=== PATIENT | female | born 1980 | race Two or more races ===

== ENCOUNTER 2017-04-21 06:35 | Emergency (ER) | payer MEDICAID ==
[~2017-04-21] VITALS: Ht 149.9 cm; Wt 70.3 kg
[2017-04-21 07:18] LABS: Basophils # (auto) 0.1 uL; Basophils % (auto) 1.1 % (0.0-2.0); CONDITION Y; DEFINITIVE SEE PRINTOUT; Eosinophils # (auto) 0.2 uL; Eosinophils % (auto) 1.9 % (0.0-7.0); Hematocrit 34.6 % (36.0-46.0); Hemoglobin 11.7 g/dL (12.2-16.2); Lymphocytes # (auto) 2.4 uL; Lymphocytes % (auto) 26.4 % (10.0-50.0); Mean Corpuscular Hemoglobin 26.9 pg (28.0-32.0); Mean Corpuscular Hgb Conc. 33.7 g/dL (32.0-36.0); Mean Corpuscular Volume 79.9 fL (80.0-100.0); Mean Platelet Volume 9.3 fL (7.4-10.4); Monocytes # (auto) 0.8 uL; Monocytes % (auto) 8.5 % (0.0-12.0); Neutrophils # (auto) 5.6 uL; Neutrophils % (auto) 62.1 % (37.0-80.0); Platelet Count (auto) 349 10^3/uL (140-450); Red Cell Distribution Width 14.6 % (11.6-16.0); White Blood Cell 8.9 10^3/uL (4.4-10.8)
[2017-04-21] MEDS ORDERED: LORazepam 2MG/ML-1ML VIAL IV ONE (07:30)
[2017-04-21 07:33] LABS: INR 0.91 (0.9-1.15); Partial Thromboplastin Time 26.8 sec (22.64-33.71); Prothrombin Time 9.9 sec (9.37-12.3)
[2017-04-21 07:51] LABS: Albumin 3.3 g/dL (3.4-5.0); BUN/Creatinine Ratio 24.6; Calcium 8.5 mg/dL (8.5-10.1); Potassium 3.8 mmol/L (3.5-5.1)
[2017-04-21 07:55] LABS: Bilirubin, Total 0.2 mg/dL (0.2-1.0); Total Protein 7.7 g/dL (6.4-8.2)
[2017-04-21 09:22] VITALS: BP 109/73
== END 2017-04-21 09:34 | disposition short-term general hospital (02) ==
LOC: ER 06:46
DX: I69.114 Frontal lobe and executive function deficit following nontraumatic intracerebral hemorrhage (principal)
CPT/HCPCS: 36415; 70450; 80053; 85025; 85610; 85730; 96374; 99291; J2060

== ENCOUNTER 2017-07-17 03:23 | Emergency (ER) | payer MEDICAID ==
[~2017-07-17] VITALS: Ht 149.9 cm; Wt 70.3 kg
[2017-07-17 04:36] LABS: Urine Bilirubin Negative (Negative); Urine Blood Negative /uL (Negative); Urine Color Yellow (Yellow); Urine Glucose Normal (Normal); Urine Ketone Negative (Negative); Urine Mucus FEW (None Seen); Urine Nitrite Negative (Negative); Urine RBC <1 /hpf (0 - 4); Urine Squamous Epithelial Cell FEW /hpf (<5)
[2017-07-17] MEDS ORDERED: HYDROcodone-ACET 5/325MG TAB PO ONE (08:30)
[2017-07-17 08:37] VITALS: BP 117/73
== END 2017-07-17 09:23 | disposition home or self-care (01) ==
LOC: ER 03:24
DX: N39.0 Urinary tract infection, site not specified (principal); F41.9 Anxiety disorder, unspecified; Z86.73 Personal history of transient ischemic attack (TIA), and cerebral infarction without residual deficits
CPT/HCPCS: 70450; 81001

== ENCOUNTER 2017-11-08 07:32 | Emergency (ER) | payer MEDICAID ==
[~2017-11-08] VITALS: Ht 149.9 cm; Wt 68.0 kg
[2017-11-08 08:35] VITALS: BP 92/70
[2017-11-08 08:41] LABS: Eosinophils # (auto) 0.2 uL; Hemoglobin 10.6 g/dL (12.2-16.2); Lymphocytes # (auto) 2.5 uL
[2017-11-08 08:42] LABS: Basophils # (auto) 0 uL; Basophils % (auto) 0.4 % (0.0-2.0); Eosinophils % (auto) 1.9 % (0.0-7.0); Lymphocytes % (auto) 28.1 % (10.0-50.0); Mean Corpuscular Hgb Conc. 32.2 g/dL (32.0-36.0); Mean Corpuscular Volume 77.8 fL (80.0-100.0); Monocytes # (auto) 0.7 uL; Monocytes % (auto) 7.8 % (0.0-12.0); Neutrophils # (auto) 5.4 uL; Neutrophils % (auto) 61.8 % (37.0-80.0); Platelet Count (auto) 357 10^3/uL (140-450); Red Blood Cells 4.25 10^6/uL (4.0-5.20); White Blood Cell 8.8 10^3/uL (4.4-10.8)
[2017-11-08] MEDS ORDERED: CLOPIDOGREL BISULFATE 75 MG TAB PO ONE (08:45)
[2017-11-08 08:55] LABS: Albumin 3.4 g/dL (3.4-5.0); BUN/Creatinine Ratio 27.4; Calcium 8.7 mg/dL (8.5-10.1)
[2017-11-08 08:57] LABS: Bilirubin, Total 0.2 mg/dL (0.2-1.0); Total Protein 7.9 g/dL (6.4-8.2)
[2017-11-08] MEDS ORDERED: ONDANSETRON HCL 4 MG/2 ML VIAL IV ONE (09:00)
[2017-11-08] MEDS ORDERED: NALBUPHINE HCL 10 MG/1ml INJECTION IV ONE (09:00)
== END 2017-11-08 09:47 | disposition home or self-care (01) ==
LOC: ER 07:32
DX: R51 Headache (principal); R42 Dizziness and giddiness; R53.1 Weakness; R20.0 Anesthesia of skin; H53.8 Other visual disturbances; I10 Essential (primary) hypertension; Z86.73 Personal history of transient ischemic attack (TIA), and cerebral infarction without residual deficits
CPT/HCPCS: 36415; 70450; 80053; 85025; 93005; 96374; 96375; 99285; J2300; J2405

== ENCOUNTER 2018-04-29 06:44 | Inpatient (IN) | payer MEDICAID ==
[~2018-04-29] VITALS: Ht 149.9 cm; Wt 86.9 kg
[2018-04-29 07:31] LABS: Basophils # (auto) 0 uL; Eosinophils # (auto) 0.1 uL; Eosinophils % (auto) 1.2 % (0.0-7.0); Hemoglobin 10.7 g/dL (12.2-16.2); Monocytes # (auto) 0.5 uL; Neutrophils # (auto) 6.4 uL; Nucleated Red Blood Cells % 0.1 %
[2018-04-29 07:33] LABS: Basophils % (auto) 0.5 % (0.0-2.0); Hematocrit 32.3 % (36.0-46.0); Lymphocytes # (auto) 2.2 uL; Lymphocytes % (auto) 23.6 % (10.0-50.0); Mean Corpuscular Hemoglobin 25.4 pg (28.0-32.0); Mean Corpuscular Hgb Conc. 33.1 g/dL (32.0-36.0); Mean Corpuscular Volume 76.8 fL (80.0-100.0); Monocytes % (auto) 5.6 % (0.0-12.0); Neutrophils % (auto) 69.1 % (37.0-80.0); Platelet Count (auto) 376 10^3/uL (140-450); Red Blood Cells 4.21 10^6/uL (4.0-5.20); Red Cell Distribution Width 16.2 % (11.8-14.3); White Blood Cell 9.3 10^3/uL (4.4-10.8)
[2018-04-29 07:34] LABS: Urine Bacteria FEW /hpf (None Seen); Urine Blood Negative /uL (Negative); Urine Mucus FEW (None Seen); Urine Specific Gravity 1.029 (1.001-1.035); Urine WBC 5 /hpf (0 - 5)
[2018-04-29 07:45] LABS: Albumin 3.3 g/dL (3.4-5.0); BUN/Creatinine Ratio 16.2; Calcium 8.1 mg/dL (8.5-10.1)
[2018-04-29 07:48] LABS: Bilirubin, Total 0.1 mg/dL (0.2-1.0); Total Protein 7.8 g/dL (6.4-8.2)
[2018-04-29 07:59] LABS: INR 0.9 (0.9-1.15); Partial Thromboplastin Time 30.3 sec (23.78-33.04); Prothrombin Time 9.7 sec (9.27-12.13)
[2018-04-29] MEDS ORDERED: ONDANSETRON HCL 4 MG/2 ML VIAL IV ONE (08:15)
[2018-04-29] MEDS ORDERED: MORPHINE SULF INJ 2 MG/ML SYRINGE 1ML IV ONE (08:15)
[2018-04-29] MEDS ORDERED: HYDROcodone-ACET 5/325MG TAB PO ONE (09:15)
[2018-04-29] MEDS ORDERED: MORPHINE SULF INJ 2 MG/ML SYRINGE 1ML IV PRN (10:00)
[2018-04-29] MEDS ORDERED: DOCUSATE SOD 100 MG CAP PO PRN (10:00)
[2018-04-29] MEDS ORDERED: cefTRIAXone 1GM/10ml IVPUSH 10 ML IV ONE (10:00)
[2018-04-29] MEDS ORDERED: ACETAMINOPHEN 325 MG TAB PO PRN (10:00)
[2018-04-29] MEDS ORDERED: NITROGLYCERIN 0.4 MG SL TAB SL PRN (10:00)
[2018-04-29] MEDS ORDERED: ZOLPIDEM TARTRATE 5 MG TAB PO PRN (10:00)
[2018-04-29] MEDS: ENOXAPARIN SOD 40 MG/0.4 ML SYRINGE SC SCH (10:19)
[2018-04-29] MEDS: MULTIPLE VITAMIN TAB PO SCH (10:19)
[2018-04-29] MEDS: FAMOTIDINE 20 MG TAB PO SCH ×2 (10:19→22:08)
[2018-04-29] MEDS: ASPirin-EC 81 mg tab PO SCH (10:19)
[2018-04-29 10:25] LABS: % Iron Saturation 4.2 % (15-50)
[2018-04-29] MEDS: Ensure Enlive Strawberry 8oz Bottle PO SCH ×2 (12:00→17:56)
[2018-04-29] MEDS: HYDROcodone-ACET 5/325MG TAB PO PRN ×2 (13:23→19:55)
[2018-04-29] MEDS: SODIUM CHLOR 0.9% PF (SALINE LOCK) 10ML VIAL/SYR IV SCH ×2 (13:25→22:08)
[2018-04-29] MEDS: GABAPENTIN 300 MG CAP PO SCH ×2 (14:32→22:08)
[2018-04-29] MEDS ORDERED: LORazepam 2MG/ML-1ML VIAL IV PRN (20:00)
[2018-04-29 21:00] VITALS: BP 109/67
[2018-04-29 22:01] VITALS: BP 109/67
[2018-04-29] MEDS: ATORVASTATIN 20 MG TAB PO SCH (22:08)
[2018-04-30] MEDS ORDERED: AMIT50TA3 PO (00:11)
[2018-04-30] MEDS ORDERED: GABA300C10 PO (00:11)
[2018-04-30 05:12] VITALS: BP 107/61
[2018-04-30] MEDS: SODIUM CHLOR 0.9% PF (SALINE LOCK) 10ML VIAL/SYR IV SCH ×3 (05:46→21:13)
[2018-04-30] MEDS: GABAPENTIN 300 MG CAP PO SCH ×3 (05:46→21:13)
[2018-04-30] MEDS: HYDROcodone-ACET 5/325MG TAB PO PRN (05:46)
[2018-04-30 06:25] LABS: Basophils # (auto) 0 uL; Basophils % (auto) 0.4 % (0.0-2.0); Eosinophils # (auto) 0.1 uL; Eosinophils % (auto) 2.1 % (0.0-7.0); Mean Corpuscular Hemoglobin 25.4 pg (28.0-32.0)
[2018-04-30 06:28] LABS: Hematocrit 33.1 % (36.0-46.0); Hemoglobin 10.8 g/dL (12.2-16.2); Lymphocytes # (auto) 1.6 uL; Lymphocytes % (auto) 31.5 % (10.0-50.0); Mean Corpuscular Hgb Conc. 32.6 g/dL (32.0-36.0); Mean Corpuscular Volume 77.8 fL (80.0-100.0); Monocytes # (auto) 0.4 uL; Monocytes % (auto) 7.3 % (0.0-12.0); Neutrophils % (auto) 58.7 % (37.0-80.0); Platelet Count (auto) 355 10^3/uL (140-450); Red Blood Cells 4.25 10^6/uL (4.0-5.20); Red Cell Distribution Width 16.1 % (11.8-14.3); White Blood Cell 5.1 10^3/uL (4.4-10.8)
[2018-04-30 06:49] LABS: BUN/Creatinine Ratio 18.5; Bilirubin, Total 0.3 mg/dL (0.2-1.0); Calcium 8.2 mg/dL (8.5-10.1); Potassium 4.4 mmol/L (3.5-5.1)
[2018-04-30 08:00] VITALS: BP 92/55
[2018-04-30] MEDS: Ensure Enlive Strawberry 8oz Bottle PO SCH ×3 (08:01→17:59)
[2018-04-30] MEDS: cefTRIAXone 1GM/10ml IVPUSH 10 ML IV SCH (09:15)
[2018-04-30] MEDS: ENOXAPARIN SOD 40 MG/0.4 ML SYRINGE SC SCH (09:45)
[2018-04-30] MEDS: FAMOTIDINE 20 MG TAB PO SCH ×2 (09:45→21:13)
[2018-04-30] MEDS: MULTIPLE VITAMIN TAB PO SCH (09:45)
[2018-04-30] MEDS: ASPirin-EC 81 mg tab PO SCH (09:45)
[2018-04-30 12:32] VITALS: BP 121/71
[2018-04-30 16:42] VITALS: BP 105/58
[2018-04-30] MEDS ORDERED: LORazepam 2MG/ML-1ML VIAL IV PRN (18:15)
[2018-04-30] MEDS: HYDROcodone-ACET 10/325MG TAB PO PRN (21:14)
[2018-04-30] MEDS: ATORVASTATIN 20 MG TAB PO SCH (21:14)
[2018-04-30 21:41] VITALS: BP 103/56
[2018-05-01] MEDS: HYDROcodone-ACET 10/325MG TAB PO PRN ×4 (03:25→19:08)
[2018-05-01] MEDS: SODIUM CHLOR 0.9% PF (SALINE LOCK) 10ML VIAL/SYR IV SCH ×3 (05:44→21:18)
[2018-05-01] MEDS: GABAPENTIN 300 MG CAP PO SCH ×3 (05:44→21:18)
[2018-05-01 05:55] VITALS: BP 90/52
[2018-05-01 07:50] LABS: BUN/Creatinine Ratio 23.8; Calcium 8.4 mg/dL (8.5-10.1); Potassium 4.2 mmol/L (3.5-5.1)
[2018-05-01] MEDS: Ensure Enlive Strawberry 8oz Bottle PO SCH ×3 (08:17→18:00)
[2018-05-01 08:30] VITALS: BP 123/61
[2018-05-01] MEDS: ASPirin-EC 81 mg tab PO SCH (09:22)
[2018-05-01] MEDS: FAMOTIDINE 20 MG TAB PO SCH ×2 (09:22→21:18)
[2018-05-01] MEDS: ENOXAPARIN SOD 40 MG/0.4 ML SYRINGE SC SCH (09:22)
[2018-05-01] MEDS: MULTIPLE VITAMIN TAB PO SCH (09:22)
[2018-05-01] MEDS: cefTRIAXone 1GM/10ml IVPUSH 10 ML IV SCH (09:35)
[2018-05-01 12:46] VITALS: BP 93/57
[2018-05-01] MEDS: ONDANSETRON HCL 4 MG/2 ML VIAL IV PRN ×2 (12:51→19:07)
[2018-05-01 16:58] VITALS: BP 101/59
[2018-05-01] MEDS: ATORVASTATIN 20 MG TAB PO SCH (21:18)
[2018-05-01 22:00] VITALS: BP 105/63
[2018-05-02] VITALS (8 sets, daily range): BP systolic 95–127; BP diastolic 56–72
[2018-05-02] MEDS: SODIUM CHLOR 0.9% PF (SALINE LOCK) 10ML VIAL/SYR IV SCH ×3 (05:15→21:35)
[2018-05-02] MEDS: GABAPENTIN 300 MG CAP PO SCH ×3 (05:15→21:34)
[2018-05-02 06:54] LABS: Basophils # (auto) 0 uL; Eosinophils # (auto) 0.1 uL; Hemoglobin 11.1 g/dL (12.2-16.2); Monocytes # (auto) 0.5 uL; Neutrophils # (auto) 3.8 uL; Nucleated Red Blood Cells % 0.1 %; White Blood Cell 6.5 10^3/uL (4.4-10.8)
[2018-05-02 06:57] LABS: Basophils % (auto) 0.2 % (0.0-2.0); Eosinophils % (auto) 1.6 % (0.0-7.0); Hematocrit 34.2 % (36.0-46.0); Lymphocytes # (auto) 2.1 uL; Mean Corpuscular Hemoglobin 24.9 pg (28.0-32.0); Mean Corpuscular Hgb Conc. 32.5 g/dL (32.0-36.0); Mean Corpuscular Volume 76.8 fL (80.0-100.0); Monocytes % (auto) 7.5 % (0.0-12.0); Neutrophils % (auto) 58.7 % (37.0-80.0); Platelet Count (auto) 373 10^3/uL (140-450); Red Blood Cells 4.46 10^6/uL (4.0-5.20); Red Cell Distribution Width 16.5 % (11.8-14.3)
[2018-05-02 07:15] LABS: BUN/Creatinine Ratio 24.6; Calcium 8.7 mg/dL (8.5-10.1); Potassium 4.8 mmol/L (3.5-5.1)
[2018-05-02] MEDS: Ensure Enlive Strawberry 8oz Bottle PO SCH ×3 (09:44→18:34)
[2018-05-02] MEDS: MULTIPLE VITAMIN TAB PO SCH (09:44)
[2018-05-02] MEDS: ASPirin-EC 81 mg tab PO SCH (09:44)
[2018-05-02] MEDS: FAMOTIDINE 20 MG TAB PO SCH ×2 (09:44→21:34)
[2018-05-02] MEDS: cefTRIAXone 1GM/10ml IVPUSH 10 ML IV SCH (09:44)
[2018-05-02] MEDS: HYDROcodone-ACET 10/325MG TAB PO PRN ×2 (09:51→16:14)
[2018-05-02] MEDS: ONDANSETRON HCL 4 MG/2 ML VIAL IV PRN ×2 (10:53→20:26)
[2018-05-02] MEDS: ENOXAPARIN SOD 40 MG/0.4 ML SYRINGE SC SCH (10:57)
[2018-05-02] MEDS ORDERED: FLUMAZENIL 0.1 MG/ML INJ 10ML MDV IV ONE (12:45)
[2018-05-02] MEDS ORDERED: MIDAZOLAM HCL 1MG/1ML-2 ML VIAL IV ONE (12:45)
[2018-05-02] MEDS ORDERED: LIDOCAINE VISCOUS 2% 15ML UD PO ONE (12:45)
[2018-05-02] MEDS ORDERED: fentaNYL CITRATE 100 MCG/2 ML VL IV ONE (12:45)
[2018-05-02] MEDS ORDERED: MIDAZOLAM HCL 1MG/1ML-2 ML VIAL ONE (12:56)
[2018-05-02] MEDS ORDERED: NALOXONE HCL 0.4 MG/ML VIAL ONE (12:57)
[2018-05-02] MEDS: ATORVASTATIN 20 MG TAB PO SCH (21:34)
[2018-05-03 05:30] VITALS: BP 98/49
[2018-05-03] MEDS: GABAPENTIN 300 MG CAP PO SCH ×2 (05:32→14:27)
[2018-05-03] MEDS: SODIUM CHLOR 0.9% PF (SALINE LOCK) 10ML VIAL/SYR IV SCH ×2 (05:32→14:17)
[2018-05-03] MEDS: HYDROcodone-ACET 10/325MG TAB PO PRN ×3 (05:34→14:27)
[2018-05-03 08:00] VITALS: BP 92/55
[2018-05-03] MEDS: FAMOTIDINE 20 MG TAB PO SCH (09:51)
[2018-05-03] MEDS: Ensure Enlive Strawberry 8oz Bottle PO SCH ×2 (09:51→12:41)
[2018-05-03] MEDS: cefTRIAXone 1GM/10ml IVPUSH 10 ML IV SCH (09:51)
[2018-05-03] MEDS: ONDANSETRON HCL 4 MG/2 ML VIAL IV PRN ×2 (09:51→14:28)
[2018-05-03] MEDS: ASPirin-EC 81 mg tab PO SCH (09:51)
[2018-05-03] MEDS: ENOXAPARIN SOD 40 MG/0.4 ML SYRINGE SC SCH (09:52)
[2018-05-03] MEDS: MULTIPLE VITAMIN TAB PO SCH (09:52)
[2018-05-03 12:00] VITALS: BP 100/65
[2018-05-03 15:06] VITALS: BP 92/55
== END 2018-05-03 16:06 | disposition home or self-care (01) | DRG 45 ==
LOC: ER 06:44 → MERGE 06:45 → TELE 06:45 → TELE-WESTW 20:55
PROVIDERS: ADMIT Internal Medicine; ATTEND Internal Medicine
PROC: B24BZZ4 Ultrasonography of Heart with Aorta, Transesophageal (ICD-10-PCS; principal; 2018-05-02)
DX: I63.9 Cerebral infarction, unspecified (principal); E44.1 Mild protein-calorie malnutrition; N39.0 Urinary tract infection, site not specified; E83.51 Hypocalcemia; D63.8 Anemia in other chronic diseases classified elsewhere; R94.5 Abnormal results of liver function studies; Z79.82 Long term (current) use of aspirin; Z79.899 Other long term (current) drug therapy; F41.9 Anxiety disorder, unspecified; E78.5 Hyperlipidemia, unspecified; Z82.49 Family history of ischemic heart disease and other diseases of the circulatory system; Z83.3 Family history of diabetes mellitus; Z86.73 Personal history of transient ischemic attack (TIA), and cerebral infarction without residual deficits; Z91.041 Radiographic dye allergy status; Z91.013 Allergy to seafood; G43.909 Migraine, unspecified, not intractable, without status migrainosus; M46.82 Other specified inflammatory spondylopathies, cervical region; Z68.38 Body mass index [BMI] 38.0-38.9, adult
CPT/HCPCS: 36415; 70450; 70551; 80048; 80053; 80061; 81001; 81025; 83540; 83550; 85025; 85379; 85610; 85730; 87086; 92610; 93306; 93312; 93886; 96374; 96375; 96376; 99152; J0696; J2250; J2405

== ENCOUNTER 2019-09-01 19:48 | Inpatient (IN) | payer SELFPAY ==
[~2019-09-01] VITALS: Ht 149.9 cm; Wt 67.7 kg
[~2019-09-01 19:48] MED LIST: AMIT50TA3 PO; GABA300C10 PO
[2019-09-01] MEDS ORDERED: ONDANSETRON ODT 4 MG TAB PO ONE (20:30)
[2019-09-01] MEDS ORDERED: SODIUM CHLORIDE 0.9% 1,000 ML IVB ONE (20:33)
[2019-09-01] MEDS ORDERED: MORPHINE SULFATE 4 MG/ML SYR/VIAL IV ONE (20:45)
[2019-09-01] MEDS ORDERED: FAMOTIDINE (10MG/ML) 2ML VL IV ONE (20:45)
[2019-09-01 20:56] LABS: Basophils # (auto) 0 uL; Basophils % (auto) 0.2 % (0.0-2.0); Eosinophils # (auto) 0 uL; Eosinophils % (auto) 0.4 % (0.0-7.0); Hematocrit 36.3 % (36.0-46.0); Lymphocytes # (auto) 1.6 uL; Lymphocytes % (auto) 20.3 % (10.0-50.0); Mean Corpuscular Hemoglobin 28.9 pg (28.0-32.0); Mean Corpuscular Volume 87.5 fL (80.0-100.0); Monocytes # (auto) 0.6 uL; Monocytes % (auto) 8.3 % (0.0-12.0); Neutrophils # (auto) 5.5 uL; Neutrophils % (auto) 70.8 % (37.0-80.0); Nucleated Red Blood Cells % 0.1 %; Platelet Count (auto) 290 10^3/uL (140-450); Red Blood Cells 4.15 10^6/uL (4.0-5.20); Red Cell Distribution Width 13.4 % (11.8-14.3); White Blood Cell 7.8 10^3/uL (4.4-10.8)
[2019-09-01 21:09] LABS: Albumin 3.2 g/dL (3.4-5.0); BUN/Creatinine Ratio 25.5; Calcium 8.4 mg/dL (8.5-10.1); Potassium 3.6 mmol/L (3.5-5.1)
[2019-09-01 21:17] LABS: Bilirubin, Total 3.2 mg/dL (0.2-1.0); Total Protein 7.3 g/dL (6.4-8.2)
[2019-09-01] MEDS ORDERED: metroNIDAZOLE 500MG/100ML 100 ML IV ONE (23:00)
[2019-09-01] MEDS ORDERED: SODIUM CHLORIDE 0.9% 1,000 ML IV ONE (23:00)
[2019-09-01] MEDS ORDERED: cefTRIAXone 1GM/50ML D5W 50 ML IV ONE (23:00)
[2019-09-01] MEDS ORDERED: MORPHINE SULF INJ 2 MG/ML SYRINGE 1ML IV PRN (23:00)
[2019-09-01] MEDS ORDERED: NITROGLYCERIN 0.4 MG SL TAB SL PRN (23:00)
[2019-09-02] MEDS: MORPHINE SULFATE 4 MG/ML SYR/VIAL IV PRN ×4 (04:19→20:52)
[2019-09-02] MEDS: ONDANSETRON HCL 4 MG/2 ML VIAL IV PRN ×4 (04:20→20:52)
[2019-09-02] MEDS ORDERED: metroNIDAZOLE 500MG/100ML 100 ML IV SCH (06:00)
[2019-09-02 07:56] LABS: Basophils # (auto) 0 uL; Basophils % (auto) 0.1 % (0.0-2.0); Eosinophils # (auto) 0 uL; Eosinophils % (auto) 0.6 % (0.0-7.0); Hematocrit 33.5 % (36.0-46.0); Hemoglobin 11.3 g/dL (12.2-16.2); Lymphocytes # (auto) 1.2 uL; Lymphocytes % (auto) 18.1 % (10.0-50.0); Mean Corpuscular Hemoglobin 29.4 pg (28.0-32.0); Mean Corpuscular Hgb Conc. 33.6 g/dL (32.0-36.0); Mean Corpuscular Volume 87.5 fL (80.0-100.0); Monocytes # (auto) 0.5 uL; Monocytes % (auto) 7.4 % (0.0-12.0); Neutrophils # (auto) 5.1 uL; Neutrophils % (auto) 73.8 % (37.0-80.0); Platelet Count (auto) 248 10^3/uL (140-450); Red Blood Cells 3.83 10^6/uL (4.0-5.20); Red Cell Distribution Width 13.5 % (11.8-14.3); White Blood Cell 6.9 10^3/uL (4.4-10.8)
[2019-09-02 08:09] LABS: Albumin 2.8 g/dL (3.4-5.0); BUN/Creatinine Ratio 25.5; Calcium 7.9 mg/dL (8.5-10.1); Potassium 3.9 mmol/L (3.5-5.1)
[2019-09-02 08:11] LABS: Bilirubin, Total 3.1 mg/dL (0.2-1.0); Total Protein 6.4 g/dL (6.4-8.2)
--- NOTE | 2019-09-02 08:40 | NUR ---
Telemetry admit from ER DOMI MCCALL admitted to Telemetry unit after SBAR received. Patient oriented to GERRY TRIVEDI, primary RN, unit, room, bed, and unit policies regarding patient care and visiting hours. Patient now on continuous telemetry monitoring. Patient weighed by bedscale and encouraged to call if they need something. All questions and concerns addressed, patient verbalized understanding.
--- NOTE | 2019-09-02 08:45 | NUR ---
PT TRANSPORTED BY RADIOLOGY FOR MRI.
[2019-09-02] MEDS ORDERED: cefTRIAXone 1GM/50ML D5W 50 ML IV SCH (09:00)
--- NOTE | 2019-09-02 09:15 | NUR ---
PT RETURNED FROM MRI. REFUSED TEST. CLAIMED SHE WAS TOO CLAUSTROPHOBIC. DR RODRIGUEZ IS AWARE. ORDERED HIDA SCAN.
[2019-09-02 09:20] VITALS: BP 102/57
[2019-09-02] MEDS: PIPERACILLIN-TAZOB 3.375GM 100 ML IV SCH ×5 (10:00→23:38)
[2019-09-02] MEDS: PANTOPRAZOLE 40 MG/10 ML VIAL INJ IV SCH (10:02)
[2019-09-02 10:19] LABS: INR 0.97 (0.9-1.15); Partial Thromboplastin Time 27.8 sec (23.64-32.05)
[2019-09-02] MEDS: LACTATED RINGER'S 1,000 ML IV SCH ×3 (10:27→23:05)
--- NOTE | 2019-09-02 12:00 | NUR ---
PT RETURNED FROM XRAY AND HIDA SCAN. NO DISTRESS NOTED.
[2019-09-02 13:00] VITALS: BP 100/53
[2019-09-02] MEDS ORDERED: MIDAZOLAM HCL 10 MG/5 ML ORAL SYRUP UNIT DOSE PO ONE (16:30)
[2019-09-02 17:00] VITALS: BP 96/57
--- NOTE | 2019-09-02 17:30 | NUR ---
SPOKE TO DR HA ABOUT PTS REFUSAL DURING MRI MRCP DUE TO CLAUSTROPHOBIA. PLACED ORDER FOR VERSED PO. WAS NOTIFIED BY PHARMACY THAT MED IS NOT AVAILABLE. WILL CONTACT
--- NOTE | 2019-09-02 18:00 | NUR ---
CALLED ABOUT MRI. WAS TOLD THAT PT MAY NOT BE ABLE TO GO FOR PROCEDURE UNTIL TOMORROW MORNING DUE TO BEING AFTER HOURS.
--- NOTE | 2019-09-02 19:30 | NUR ---
SPOKE WITH ONCALL HOSPITALIST SETH. ORDERED TO CANCEL VERSED PO ORDER. ONE TIME ORDER OF VERSED 1MG IV WAS ORDERED.
--- NOTE | 2019-09-02 19:55 | NUR ---
assumed care, pt. resting with eyes closed, no c/o pain and nausea, no sob.
--- NOTE | 2019-09-02 20:30 | NUR ---
PHARMACY CALLED RE: [facility]. PER PHARMACY PROTOCOL VERSED MEDICATION NOT ALLOWED TO BE GIVEN ON THE FLOOR, THIS ONLY USE FOR SEDATION, TO ENDORSED TO RN IN AM, PHARMACY RECOMMENDED ATIVAN IV .
[2019-09-02 21:00] VITALS: BP 105/54
[2019-09-02] MEDS ORDERED: MIDAZOLAM HCL 1MG/1ML-2 ML VIAL IV ONE (23:00)
[2019-09-03] MEDS: ONDANSETRON HCL 4 MG/2 ML VIAL IV PRN ×3 (00:57→08:31)
[2019-09-03] MEDS: MORPHINE SULFATE 4 MG/ML SYR/VIAL IV PRN ×3 (00:57→08:31)
[2019-09-03 04:30] VITALS: BP 100/63
[2019-09-03] MEDS: PIPERACILLIN-TAZOB 3.375GM 100 ML IV SCH ×3 (05:31→20:05)
[2019-09-03] MEDS: LACTATED RINGER'S 1,000 ML IV SCH ×3 (05:45→22:32)
[2019-09-03 06:16] LABS: Basophils # (auto) 0 uL; Basophils % (auto) 0.2 % (0.0-2.0); Eosinophils # (auto) 0.1 uL; Eosinophils % (auto) 0.7 % (0.0-7.0); Hematocrit 34.7 % (36.0-46.0); Hemoglobin 11.8 g/dL (12.2-16.2); Lymphocytes # (auto) 1.2 uL; Lymphocytes % (auto) 16.3 % (10.0-50.0); Mean Corpuscular Hemoglobin 29.8 pg (28.0-32.0); Mean Corpuscular Hgb Conc. 34.1 g/dL (32.0-36.0); Mean Corpuscular Volume 87.3 fL (80.0-100.0); Monocytes # (auto) 0.5 uL; Monocytes % (auto) 6.8 % (0.0-12.0); Neutrophils # (auto) 5.5 uL; Platelet Count (auto) 257 10^3/uL (140-450); Red Blood Cells 3.98 10^6/uL (4.0-5.20); Red Cell Distribution Width 13.6 % (11.8-14.3); White Blood Cell 7.3 10^3/uL (4.4-10.8)
[2019-09-03 06:37] LABS: Albumin 2.7 g/dL (3.4-5.0); Calcium 8.2 mg/dL (8.5-10.1); Potassium 3.7 mmol/L (3.5-5.1)
[2019-09-03 06:48] LABS: BUN/Creatinine Ratio 14.8; Bilirubin, Total 3.1 mg/dL (0.2-1.0); Total Protein 6.3 g/dL (6.4-8.2)
--- NOTE | 2019-09-03 07:55 | NUR ---
OPENING SHIFT NOTE ASSUMED CARE OF PT. PT IS AWAKE AND ALERT X4. NO SOB OR SIGNS OF DISTRESS NOTED. PT REPORTING INCREASED PAIN AT THIS TIME. WILL CONTACT DR FOR INSTRUCTIONS. INSTRUCTED ON POC AND TO CALL FOR HELP PRN. BED IN LOWEST POSITION WITH SIDE RAILS UP X2. WILL CONTINUE TO MONITOR.
--- NOTE | 2019-09-03 08:30 | NUR ---
SPOKE WITH DR HA ABOUT PT PAIN AND PT WILLING TO TRY MRI MRCP. ORDERED DILAUDID 1MG IV Q3. WILL PLACE AND CARRY OUT.
[2019-09-03 09:00] VITALS: BP 104/58
[2019-09-03 09:59] LABS: Urine Bacteria NONE SEEN /hpf (None Seen); Urine Blood TRACE /uL (Negative); Urine Specific Gravity 1.017 (1.001-1.035); Urine WBC 2 /hpf (0 - 5)
[2019-09-03] MEDS: PANTOPRAZOLE 40 MG/10 ML VIAL INJ IV SCH (11:32)
[2019-09-03] MEDS: HYDROmorphone HCL 2 MG/ML VL IV PRN ×3 (11:34→21:23)
[2019-09-03 13:00] VITALS: BP 95/48
--- NOTE | 2019-09-03 15:45 | NUR ---
TOOK PT TO PRE-OP FOR PROCEDURE. VITAL SIGNS WNL. NO DISTRESS NOTED.
[2019-09-03 16:48] VITALS: BP 93/56
[2019-09-03] MEDS ORDERED: LABETALOL HCL 5 MG/ML 4ML SYRINGE IV PRN (18:00)
[2019-09-03] MEDS ORDERED: HYDROmorphone HCL 2 MG/ML VL IV PRN (18:00)
[2019-09-03] MEDS ORDERED: ONDANSETRON HCL 4 MG/2 ML VIAL IV PRN (18:00)
[2019-09-03] MEDS ORDERED: MORPHINE SULFATE 4 MG/ML SYR/VIAL IV PRN (18:00)
[2019-09-03] MEDS ORDERED: ePHEDrine SULFATE 50 MG/ML AMP IV PRN (18:00)
[2019-09-03] MEDS ORDERED: KETOROLAC TROMETH 30 MG/ML 1ML VIAL IV ONE (18:00)
[2019-09-03] MEDS ORDERED: MIDAZOLAM HCL 1MG/1ML-2 ML VIAL IV PRN (18:00)
--- NOTE | 2019-09-03 18:50 | NUR ---
CALLED OR [facility]. WAS TOLD PT HAD BEEN OUT OF SURGERY FOR 30 MINUTES AND WAS RECOVERING. RECOVERY NURSE STATED SHE WOULD CALL TO GIVE COMPLETE REPORT AT 1930. WILL ENDORSE TO RECORD TESTER RN.
--- NOTE | 2019-09-03 19:00 | NUR ---
PT. STILL IN [facility].
--- NOTE | 2019-09-03 19:45 | NUR ---
RECIVED PT. FROM ANICETO JOHANSEN, FROM [facility], AWAKE,ALERT AND ORIENTED, PT. S/P LAP. CHOLECYSTECTOMY, WITH THREE SMALL DRESSINGS ON ABDOMINAL AREA DRY AND INTACT, RELATIVES AT BEDSIDE, NO SOB.
[2019-09-04] VITALS (7 sets, daily range): BP systolic 91–100; BP diastolic 40–61
[2019-09-04] MEDS: PIPERACILLIN-TAZOB 3.375GM 100 ML IV SCH ×4 (01:00→19:40)
[2019-09-04] MEDS: LACTATED RINGER'S 1,000 ML IV SCH ×4 (01:45→19:40)
[2019-09-04] MEDS: HYDROmorphone HCL 2 MG/ML VL IV PRN ×4 (03:52→22:09)
[2019-09-04 05:36] LABS: Basophils # (auto) 0 uL; Eosinophils # (auto) 0 uL; Hematocrit 25.4 % (36.0-46.0); Hemoglobin 8.7 g/dL (12.2-16.2); Lymphocytes # (auto) 0.5 uL; Lymphocytes % (auto) 6.4 % (10.0-50.0); Mean Corpuscular Hgb Conc. 34.3 g/dL (32.0-36.0); Mean Corpuscular Volume 87.4 fL (80.0-100.0); Monocytes # (auto) 0.3 uL; Monocytes % (auto) 3.1 % (0.0-12.0); Neutrophils # (auto) 7.3 uL; Neutrophils % (auto) 90.5 % (37.0-80.0); Platelet Count (auto) 258 10^3/uL (140-450); Red Blood Cells 2.91 10^6/uL (4.0-5.20); Red Cell Distribution Width 13.8 % (11.8-14.3); White Blood Cell 8.1 10^3/uL (4.4-10.8)
[2019-09-04 05:50] LABS: Albumin 2.3 g/dL (3.4-5.0); Potassium 3.9 mmol/L (3.5-5.1)
[2019-09-04 05:53] LABS: BUN/Creatinine Ratio 21.2; Bilirubin, Total 1.6 mg/dL (0.2-1.0); Total Protein 5.6 g/dL (6.4-8.2)
--- NOTE | 2019-09-04 08:16 | NUR ---
OPENING SHIFT NOTE RESUMED CARE OF PT. PT IS AWAKE AND ALERT. NO SOB OR SIGNS OF DISTRESS NOTED. LAP CHOLECYSTECTOMY DRESSINGS DRY AND INTACT. INSTRUCTED ON POC AND TO CALL FOR HELP PRN. BED IN LOWEST POSITION WITH SIDE RAILS UP X2. CALL LIGHT WITHIN REACH. WILL CONTINUE TO MONITOR.
[2019-09-04] MEDS ORDERED: LEVOFLOXACIN 500MG 100 ML IV ONE (08:53)
--- NOTE | 2019-09-04 10:17 | NUR ---
PAGED DR BACA ABOUT ARUN DRAINAGE AMOUNT. SAID HE WOULD BE UP TO SEE PATIENT.
[2019-09-04] MEDS: PANTOPRAZOLE 40 MG/10 ML VIAL INJ IV SCH (10:49)
--- NOTE | 2019-09-04 11:00 | NUR ---
CALLED [facility] PER DR HA INSTRUCTIONS. AWAITING CALL BACK.
[2019-09-04 11:30] LABS: Basophils # (auto) 0 uL; Eosinophils # (auto) 0 uL; Hemoglobin 8.1 g/dL (12.2-16.2); Neutrophils # (auto) 7.3 uL
--- NOTE | 2019-09-04 11:30 | NUR ---
DR BACA AT BEDSIDE. ASSESSED PATIENT. ORDERED CLEAR LIQUID DIET AND WILL MONITOR LABS.
[2019-09-04 11:36] LABS: Hematocrit 23.6 % (36.0-46.0); Lymphocytes # (auto) 1.1 uL; Lymphocytes % (auto) 12.4 % (10.0-50.0); Mean Corpuscular Hemoglobin 29.8 pg (28.0-32.0); Mean Corpuscular Hgb Conc. 34.2 g/dL (32.0-36.0); Mean Corpuscular Volume 87.2 fL (80.0-100.0); Monocytes # (auto) 0.8 uL; Monocytes % (auto) 8.8 % (0.0-12.0); Neutrophils % (auto) 78.8 % (37.0-80.0); Platelet Count (auto) 268 10^3/uL (140-450); Red Blood Cells 2.71 10^6/uL (4.0-5.20); Red Cell Distribution Width 14.1 % (11.8-14.3); White Blood Cell 9.2 10^3/uL (4.4-10.8)
--- NOTE | 2019-09-04 13:58 | NUR ---
NUTRITION ASSESSMENT NOTES Please refer to link notes of nutrition screen form filed under the intervention section of the plan of care for further details. Est. Needs: 1300 kcal to 1650 kcal (20-25 kcal/kgBW), 52 gms to 65 gms pro (0.8-1.0 gms/kgBW). Will continue to monitor pertinent labs and reassess nutrient need prn Thank you. Addendum: 09/04/19 at [address] Amended: Links added.
[2019-09-04 14:44] LABS: Hemoglobin 8.8 g/dL (12.2-16.2)
--- NOTE | 2019-09-04 17:15 | NUR ---
RECEIVED CALL FROM DR BACA. REPORTED ARUN DRAIN AMOUNT. DR BACA ORDERED PT TO BE TRANSFERRED TO [facility]. CALLED [facility]. PT IS TO GO TO ROOM 261 WITH ANICETO WADE.
--- NOTE | 2019-09-04 17:15 | NUR ---
ARUN DRAINAGE SINCE [address] BACA IS AWARE.
--- NOTE | 2019-09-04 18:15 | NUR ---
PT TRANSFERRED TO [facility] ROOM 261. REPORT GIVEN TO ANICETO WADE. NO DISTRESS NOTED AT THIS TIME.
[2019-09-04 18:22] LABS: Hematocrit 21.5 % (36.0-46.0); Hemoglobin 7.3 g/dL (12.2-16.2)
--- NOTE | 2019-09-04 18:30 | NUR ---
RECEIVED PATIENT FROM THE 293B BY THE BED, PLACED ON O2 AT 1L DUE TO O2 SAT GOING TO 88%, A/O TIMES 4, SALINE LOCK 20G TO THE LAC FLUSHED AND PATENT, STATES SHE CAN USE THE BR, SCD'S PLACED TO TONY LEGS, 3 SMALL INCISION TO THE ABD WITH DRESSING AND COVERED WITH ABDOMINAL BINDER, ARUN TO THE ABD WITH BULB SUCTION, STATES SHE WAS JUST MEDICATED FOR PAIN, VS [id number]'[id number]/47 99%, WILL CONTINUE TO MONITOR AND GIVE REPORT TO THE NEXT SHIFT
[2019-09-04 21:44] LABS: Hematocrit 21.6 % (36.0-46.0)
[2019-09-04 21:46] LABS: Hemoglobin 7.3 g/dL (12.2-16.2)
[2019-09-05] VITALS (7 sets, daily range): BP systolic 99–109; BP diastolic 45–66
[2019-09-05 01:59] LABS: Hematocrit 20.1 % (36.0-46.0)
[2019-09-05 02:04] LABS: Hemoglobin 6.8 g/dL (12.2-16.2)
--- NOTE | 2019-09-05 02:13 | NUR ---
[facility] hospitalist regarding critical HGB, will continue to closely monitor patient.
[2019-09-05] MEDS: LACTATED RINGER'S 1,000 ML IV SCH ×3 (04:25→23:53)
[2019-09-05] MEDS: PIPERACILLIN-TAZOB 3.375GM 100 ML IV SCH ×5 (05:05→23:49)
[2019-09-05 06:40] LABS: Basophils # (auto) 0 uL; Basophils % (auto) 0.3 % (0.0-2.0); Eosinophils # (auto) 0.1 uL; Eosinophils % (auto) 0.9 % (0.0-7.0); Hematocrit 25.6 % (36.0-46.0); Hemoglobin 8.7 g/dL (12.2-16.2); Lymphocytes # (auto) 1.7 uL; Lymphocytes % (auto) 28.1 % (10.0-50.0); Mean Corpuscular Hemoglobin 30.3 pg (28.0-32.0); Mean Corpuscular Hgb Conc. 34.1 g/dL (32.0-36.0); Monocytes # (auto) 0.6 uL; Monocytes % (auto) 9.1 % (0.0-12.0); Neutrophils # (auto) 3.7 uL; Neutrophils % (auto) 61.6 % (37.0-80.0); Platelet Count (auto) 222 10^3/uL (140-450); Red Blood Cells 2.88 10^6/uL (4.0-5.20)
[2019-09-05 07:03] LABS: Albumin 2.2 g/dL (3.4-5.0); Magnesium 1.8 mg/dL (1.6-2.6); Potassium 3.6 mmol/L (3.5-5.1)
[2019-09-05 07:08] LABS: BUN/Creatinine Ratio 20.5; Bilirubin, Total 1.1 mg/dL (0.2-1.0); Total Protein 5.5 g/dL (6.4-8.2)
--- NOTE | 2019-09-05 07:30 | NUR ---
RECEIVED PATIENT SEMI FOWLERS IN BED, O2 BY R/A, A/O TIMES 4, LR INFUSING AT 150ML/HR BY THE IV PUMP INTO THE LAC, STATES SHE IS STILL GETTING UP TO USE THE BR, DRESSING TO THE ABD COVERED WITH ABD BINDER AND ARUN TO THE ABD WITH BURGUNDY COLORED DRAINAGE
[2019-09-05] MEDS: HYDROmorphone HCL 2 MG/ML VL IV PRN ×4 (07:49→21:57)
--- NOTE | 2019-09-05 07:50 | NUR ---
DILAUDID GIVEN FOR PAIN TO THE ABD 10/10, SLOWLY DUE TO PATIENT B/P DECREASE WHEN IT IS GIVEN, WHICH WAS EXPLAINED TO THE PATIENT
--- NOTE | 2019-09-05 08:30 | NUR ---
OFFERED BREAKFAST BUT ONLY ATE THE JELL-O
--- NOTE | 2019-09-05 09:00 | NUR ---
IN TO SEE THE PATIENT
[2019-09-05] MEDS: PANTOPRAZOLE 40 MG/10 ML VIAL INJ IV SCH (09:25)
--- NOTE | 2019-09-05 09:25 | NUR ---
EXPLAIN MEDICATIONS TO THE PATIENT REGARDING THE DOSAGE,USAGE AND THE SIDE EFFECTS, VERBALIZED THAT SHE UNDERSTOOD AND MEDS GIVEN ORDERED
--- NOTE | 2019-09-05 10:00 | NUR ---
DR BACA HERE TO SEE THE PATIENT AND STATED TO ORDER A CT OF THE ABD FOR THE PATIENT
[2019-09-05] MEDS ORDERED: IOHEXOL 300 MG/ML 100ML BOTTLE IJ ONE (10:25)
[2019-09-05 10:26] LABS: Hematocrit 25.3 % (36.0-46.0); Hemoglobin 8.6 g/dL (12.2-16.2)
--- NOTE | 2019-09-05 10:30 | NUR ---
PATIENT URINATED AND THERE WAS SOME CLOTS IN THE TOILET, DR BACA MADE AWARE
--- NOTE | 2019-09-05 11:00 | NUR ---
PATIENT STATES THE BLOOD WHEN SHE URINATED MAY BE FROM HER BEING ON HER PERIOD SHE DOESN'T KNOW IF IT HAS STOPPED YET
--- NOTE | 2019-09-05 11:05 | NUR ---
DR HA IN TO SEE THE PATIENT
--- NOTE | 2019-09-05 11:20 | NUR ---
DILAUDID GIVEN FOR PAIN TO THE ABD 10/10
--- NOTE | 2019-09-05 11:45 | NUR ---
PATIENT TO THE CT BY THE BED FOR CT OF THE ABD
--- NOTE | 2019-09-05 12:10 | NUR ---
BACK FROM CT AND TOLERATED THE PROCEDURE
--- NOTE | 2019-09-05 13:20 | NUR ---
NOTIFIED BY DR BACA THAT THE CT WAS NEGATIVE AND TO GIVE THE PATIENT REGULAR FOOD,
--- NOTE | 2019-09-05 13:48 | NUR ---
SITTING UP IN BED EATING AND TALKING THE PHONE
[2019-09-05 14:02] LABS: Hematocrit 26.4 % (36.0-46.0); Hemoglobin 9.1 g/dL (12.2-16.2)
--- NOTE | 2019-09-05 14:30 | NUR ---
NO CHANGE IN CONDITION
--- NOTE | 2019-09-05 15:25 | NUR ---
SITTING UP IN THE BED WITH EYES CLOSED
--- NOTE | 2019-09-05 16:00 | NUR ---
UP TO THE BR AND URINATED AND SPECIMEN SENT TO THE LAB
--- NOTE | 2019-09-05 16:20 | NUR ---
MEDICATED FOR PAIN TO THE ABD WITH DILAUDID TO THE ABD Addendum: 09/05/19 at 1621 by Renée De Los Santos RN PAIN LEVEL 07/10
[2019-09-05 17:31] LABS: Urine Bacteria NONE SEEN /hpf (None Seen); Urine Blood 3+ /uL (Negative); Urine Mucus FEW (None Seen); Urine Specific Gravity 1.014 (1.001-1.035); Urine WBC 3 /hpf (0 - 5)
--- NOTE | 2019-09-05 17:32 | NUR ---
LYING IN BED WITH HER EYES CLOSED
--- NOTE | 2019-09-05 17:47 | NUR ---
EXPRESS TO THE PATIENT THAT SHE NEEDS TO DRINK MORE FLUIDS
--- NOTE | 2019-09-05 18:12 | NUR ---
SITTING UP IN THE BED, TALKING ON THE PHONE, JUST CAME TO VISIT, H&H JUST DRAWN, ANTIBIOTICS INFUSING INTO THE LAC BY THE IV PUMP, GETTING UP TO BR, ARUN TO THE ABD , DRESSING TO THE ABD DRY AND INTACT COVERED BY ABDOMINAL BINDER, NOT COMPLAINING OF PAIN AT THIS TIME, WILL CONTINUE TO MONITOR AND GIVE REPORT TO THE NEXT SHIFT
[2019-09-05 18:48] LABS: Hemoglobin 8.4 g/dL (12.2-16.2)
[2019-09-05 18:50] LABS: Hematocrit 24.6 % (36.0-46.0)
--- NOTE | 2019-09-05 19:15 | NUR ---
OPENING ASSUMED CARE OF PT ALERT AND ORIENTED X4, RESTING IN BED. SR ON LICENSED NURSE PRACTITIONER. RESPIRATIONS EVEN AND UNLABORED. ABD INCISIONS CDI. ARUN SITE INTACT AND DRY, DRAINING BLOODY FLUID INTO BULB. NO PAIN AT THIS TIME. VSS. PT TURNING SELF IN BED. BED IN LOWEST LOCKED POSITION. EDUCATED RESTAURANT KITCHEN AND SERVICE MANAGER LIGHT AND TO CALL FOR ASSISTANCE BEFORE GETTING OUT OF BED, VERBALIZED UNDERSTANDING. SKIN INTACT. IN FULL VIEW OF NURSES STATION, WILL CONTINUE TO MONITOR.
--- NOTE | 2019-09-05 23:40 | NUR ---
IVS PATENT SALINE FLUSHED, ASYMPTOMATIC
[2019-09-06] VITALS (7 sets, daily range): BP systolic 91–115; BP diastolic 45–71
[2019-09-06] MEDS: HYDROmorphone HCL 2 MG/ML VL IV PRN ×6 (02:54→23:54)
--- NOTE | 2019-09-06 04:48 | NUR ---
MD AT BEDSIDE DR BACA UPDATING PT ON STATUS.
[2019-09-06 05:50] LABS: Albumin 2.3 g/dL (3.4-5.0); BUN/Creatinine Ratio 14.3; Basophils # (auto) 0 uL; Basophils % (auto) 0.2 % (0.0-2.0); Calcium 7.7 mg/dL (8.5-10.1); Eosinophils # (auto) 0.1 uL; Eosinophils % (auto) 1.6 % (0.0-7.0); Hematocrit 24.7 % (36.0-46.0); Hemoglobin 8.5 g/dL (12.2-16.2); Lymphocytes # (auto) 1.4 uL; Lymphocytes % (auto) 23.8 % (10.0-50.0); Mean Corpuscular Hemoglobin 30.3 pg (28.0-32.0); Mean Corpuscular Hgb Conc. 34.3 g/dL (32.0-36.0); Mean Corpuscular Volume 88.5 fL (80.0-100.0); Monocytes # (auto) 0.6 uL; Monocytes % (auto) 9.8 % (0.0-12.0); Neutrophils # (auto) 3.7 uL; Neutrophils % (auto) 64.6 % (37.0-80.0); Platelet Count (auto) 237 10^3/uL (140-450); Potassium 3.4 mmol/L (3.5-5.1); Red Blood Cells 2.79 10^6/uL (4.0-5.20); Red Cell Distribution Width 13.9 % (11.8-14.3); White Blood Cell 5.8 10^3/uL (4.4-10.8)
[2019-09-06 05:52] LABS: Bilirubin, Total 0.8 mg/dL (0.2-1.0); Total Protein 5.4 g/dL (6.4-8.2)
[2019-09-06] MEDS: PIPERACILLIN-TAZOB 3.375GM 100 ML IV SCH ×4 (05:55→23:53)
--- NOTE | 2019-09-06 06:21 | NUR ---
ARUN WITH 155MLS OUT THROUGHOUT NIGHT
[2019-09-06] MEDS: LACTATED RINGER'S 1,000 ML IV SCH ×3 (07:05→23:53)
--- NOTE | 2019-09-06 08:00 | NUR ---
Opening Shift Note Assumed care of patient, awake and alert. Patient A&Ox4. Patient on the monitor. Patient on room air, saturation 98%. IV left AC 20G running LR at 150ml/hr, patent, clean, dry, and intact. Patient has ABD binder off and wants to leave it off for now. ABD incisions clean, dry, and intact. ARUN drain to suction. No S/S of distress/SOB or pain. Instructed on POC and to call for assist. Bed locked and in the lowest position, side rails up x2, call light with in reach. Will continue to monitor.
--- NOTE | 2019-09-06 08:30 | NUR ---
Patient sitting up on side of bed eating breakfast independently. Will continue to monitor.
--- NOTE | 2019-09-06 10:00 | NUR ---
Medication dosages, usages, and side effects explained to patient. Patient verbalized understanding. Will continue to monitor.
[2019-09-06] MEDS: PANTOPRAZOLE 40 MG/10 ML VIAL INJ IV SCH (10:53)
--- NOTE | 2019-09-06 12:25 | NUR ---
Patient sitting up on side of bed eating lunch independently. Will continue to monitor.
--- NOTE | 2019-09-06 13:47 | NUR ---
REPORT CALLED TO [facility] IN PREP FOR TRANSFER TO [facility]
--- NOTE | 2019-09-06 14:00 | NUR ---
Pt received, as transfer from [facility]. Pt alert and oriented. V.S.S., Resp even, unlabored. No c/o pain or discomfort at this time.
--- NOTE | 2019-09-06 14:08 | NUR ---
Nutrition Follow-up Notes Wt.: 68.3 kg Pt's asleep, no immediate family member at bedside during rounds this morning. Pt's no signs of distress noted earlier, currently on Soft diet with adequate PO intake aeb 100% consumed meal on today's breakfast. Est. Needs: 1300 kcal to 1650 kcal (20-25 kcal/kgBW), 52 gms to 65 gms pro (0.8-1.0 gms/kgBW). Will continue to monitor pertinent labs and reassess nutrient need prn Labs: K 3.4 L, Ca 7.7 L, Cr 0.49 L, Tot jean marie 1.6 H, AST 44 H, ALT 100 H, ALP 229 H, Tpro 5.4 L, Alb 2.3 L Skin: Johnnie scale 18, mod risk, pt's abdominal incision dry and intact per farm planner. GI: Pt's no bowel activity since 09/02/19per farm planner. PES: Altered nutrition related lab values r/t current/chronic medical condition aeb hyperchloremia, elev. LFTs, Amylase, Lipase, hypocalcemia and mild hypoalbuminemia Obesity r/t food intake more than body requirement aeb 146% IBW, BMI 29.0 kg/m2 and increased body adiposity Will continue to monitor PO intake, skin status, pertinent labs and weight trend. F/u in 3 to 5 days. Rec.: 1.) Consider Soft Low Fat diet if LFTs remain elev. 2.) Continue close supervision during meals. 32.) If Albumin continues trending down, consider Prostat 1 pkt BID. 3.) Refer pt to RD for further nutrition education and weight monitoring upon discharge. 4.) Continue current plan of care.
[2019-09-06] MEDS ORDERED: LACTULOSE 20Gm/30ML SOLN PO PRN (14:15)
[2019-09-06] MEDS ORDERED: POTASSIUM CHL 20 Meq TABLET PO ONE (14:15)
--- NOTE | 2019-09-06 19:30 | NUR ---
Opening Shift Note Assumed care of patient, awake and alert. No S/S of distress/SOB or pain. Bed in lowest locked position, side rails up x2, call light within reach. 100 ml of sanguinous drainage noted from ARUN drain. Abdominal dressings clean, dry, and intact. Instructed on POC and to call for assist PRN, will continue to monitor for changes Q1hr and PRN.
[2019-09-06] MEDS: DOCUSATE SOD 100 MG CAP PO SCH (20:27)
[2019-09-07] MEDS: HYDROmorphone HCL 2 MG/ML VL IV PRN ×6 (03:23→21:49)
[2019-09-07 05:21] VITALS: BP 111/66
[2019-09-07] MEDS: PIPERACILLIN-TAZOB 3.375GM 100 ML IV SCH ×3 (06:39→18:21)
--- NOTE | 2019-09-07 06:50 | NUR ---
Closing Note Patient lying in bed, awake and alert. No s/s of distress. Will endorse care to dayshift RN.
[2019-09-07 07:37] LABS: Hematocrit 25.2 % (36.0-46.0); Hemoglobin 8.7 g/dL (12.2-16.2)
--- NOTE | 2019-09-07 08:00 | NUR ---
INTITIAL ASSESSMENT RESTING. ABDOMEN SOFT NON DISTENDED. 3 SMALL DSG DRY. SOME OLD STAINING TO RT SIDE SGD. WITH RAUN DRAIN. C/O PAIN TO THIS SITE. ARUN YIELDS DARK RED SMALL AMOUNT. MOVES ALL EXTREMITIES WELL. SELF CARE FOR ADLS. IV TO LEFT AC PATENT INFUSING ORDERED LR AT 100CC/HR
[2019-09-07 08:28] LABS: Albumin 2.2 g/dL (3.4-5.0); BUN/Creatinine Ratio 10.2; Calcium 7.8 mg/dL (8.5-10.1); Potassium 4.1 mmol/L (3.5-5.1)
[2019-09-07 08:30] LABS: Bilirubin, Total 0.8 mg/dL (0.2-1.0); Total Protein 5.2 g/dL (6.4-8.2)
[2019-09-07 09:00] VITALS: BP 108/64
[2019-09-07] MEDS: PANTOPRAZOLE 40 MG/10 ML VIAL INJ IV SCH (10:02)
[2019-09-07] MEDS: DOCUSATE SOD 100 MG CAP PO SCH ×2 (10:03→21:48)
[2019-09-07] MEDS: LACTATED RINGER'S 1,000 ML IV SCH (10:15)
[2019-09-07 13:00] VITALS: BP 96/52
--- NOTE | 2019-09-07 13:30 | NUR ---
ARUN DRAIN NOTED TO HAVE 75CC DARK RED FLUID. PT STATES SHE HAS BEEN TAUGHT HOW TO EMPTY THE DRAIN AND HAS THE UNDERSTANDING THAT SHE WILL HAVE IT IN PLACE WHEN GOING HOME AND IS PREPARED TO MANAGE IT AT HOME
[2019-09-07 17:00] VITALS: BP 129/74
--- NOTE | 2019-09-07 17:45 | NUR ---
C/O BLEEDING FROM AROUND ARUN DRAIN INSERTION SITE. FOUND DRAIN NOT COMPRESSED. EDUCATED ON PROPER DEFLATION OF BULB FOR GENTLE SUCTION. CLEANSED SITE AND ADDED SINGLE 4X4 GAUZE REINFORCED WITH CLEAR OCCLUSIVE DSG. MEDICATED FOR PAIN. EXPLAINED THAT PAIN WILL NEED TO BE CONTROLLED WITH PO MEDICATION BEFORE RELEASING TO HOME. TOLERATING REGULAR DIET WELL.
--- NOTE | 2019-09-07 19:25 | NUR ---
Opening Shift Note Assumed care of patient, awake and alert. No S/S of distress/SOB or pain. Bed in lowest locked position, side rails up x2, call light within reach. at bedside. 25 ml of dark sanguinous drainage noted from ARUN drain. Abdominal dressings clean, dry, and intact save for most right distal incision, noted to have been reinforced with gauze and stained with bright red blood. Per report and AM nurse drainage from uncompressed ARUN drain earlier in day. Will continue to monitor for drainage from all sites as well as output from ARUN drain. Instructed on POC and to call for assist PRN, will continue to monitor for changes Q1hr and PRN.
--- NOTE | 2019-09-07 21:15 | NUR ---
Room Transfer Patient reporting difficulty sleeping with current roommate in room 212. Charge nurse Sil MORELAND made aware, stated ok to transfer patient to [address]. Patient transferred with all belongings, tolerated well. Will continue care.
[2019-09-07 21:52] VITALS: BP 104/62
--- NOTE | 2019-09-08 00:45 | NUR ---
IV removal and insertion IV to left AC leaking, DC'd with clean sterile technique, catheter fully intact. Pressure dressing applied to site. Patient tolerated well. IV access obtained, via clean sterile technique by inserting 22 gauge catheter to patient's right hand after one attempt by Radha MORELAND. IV secured properly. No trauma to site. Patient tolerated well. Will continue care.
[2019-09-08] MEDS: LACTATED RINGER'S 1,000 ML IV SCH ×2 (00:53→15:02)
[2019-09-08] MEDS: PIPERACILLIN-TAZOB 3.375GM 100 ML IV SCH ×5 (00:53→23:35)
[2019-09-08] MEDS: HYDROmorphone HCL 2 MG/ML VL IV PRN ×7 (01:00→23:35)
--- NOTE | 2019-09-08 05:15 | NUR ---
Patient reports that she emptied ARUN drain into toilet. Per patient, drain was full "up to the 75 line," thus indicating 25 ml out. Drain noted to be compressed. Will continue to monitor.
[2019-09-08 05:19] VITALS: BP 102/63
[2019-09-08 05:45] LABS: Hematocrit 26.1 % (36.0-46.0); Hemoglobin 9.1 g/dL (12.2-16.2)
[2019-09-08 05:49] LABS: Albumin 2.3 g/dL (3.4-5.0)
[2019-09-08 05:52] LABS: Bilirubin, Direct 0.8 mg/dL (0-0.2); Bilirubin, Total 1.1 mg/dL (0.2-1.0); Total Protein 5.4 g/dL (6.4-8.2)
--- NOTE | 2019-09-08 06:47 | NUR ---
Closing Note Patient lying in bed, awake and alert. No s/s of distress. Will endorse care to dayshift RN.
[2019-09-08 09:00] VITALS: BP 109/64
[2019-09-08] MEDS: PANTOPRAZOLE 40 MG/10 ML VIAL INJ IV SCH (09:27)
[2019-09-08] MEDS: DOCUSATE SOD 100 MG CAP PO SCH ×2 (09:27→21:22)
[2019-09-08] MEDS ORDERED: traMADol HCL 50 MG TAB PO PRN (12:15)
[2019-09-08] MEDS ORDERED: HYDROcodone-ACET 10/325MG TAB PO PRN (12:15)
[2019-09-08 13:00] VITALS: BP 109/64
[2019-09-08 17:00] VITALS: BP 128/61
[2019-09-08] MEDS: HYDROcodone-ACET 10/325MG TAB PO PRN (17:36)
--- NOTE | 2019-09-08 18:30 | NUR ---
MD AWARE Dr. Maradiaga aware of patients dressing saturated with dark red drainage and leaking, per MD, remove surgical dressing and reinforced dressing and change. Dressing changed per MD order. Patient tolerated well.
--- NOTE | 2019-09-08 18:45 | NUR ---
ARUN DRAINAGE TOTAL OF 75 ML OF DARK RED DRAINAGE DURING SHIFT. PATIENT DRAINS DRAIN BY HERSELF INTO GRADUATED CYLINDER AT THE BEDSIDE.
--- NOTE | 2019-09-08 19:00 | NUR ---
CLOSING NOTE Patient is awake and alert. No S/S of distress/SOB. Dressings clean, dry, and intact. ARUN to suction. Bed locked in the lowest position. Bed rails up x2. Call light in reach. Endorsed care to night nurse.
--- NOTE | 2019-09-08 19:33 | NUR ---
Opening Shift Note Assumed care of patient, awake and alert x 4. No S/S of distress/SOB. Bed is in lowest position and locked. Call light within reach. Board updated. LR infusing at 70 mls/hr. Sanguinous drainage on bandage surrounding ARUN drain circled. Will continue to assess. Instructed on POC and to call for assist PRN, will continue to monitor for changes Q1hr and PRN.
[2019-09-08 22:00] VITALS: BP 100/61
[2019-09-09] MEDS: HYDROcodone-ACET 10/325MG TAB PO PRN ×2 (02:32→12:13)
--- NOTE | 2019-09-09 02:59 | NUR ---
Changed dressing surrounding ARUN Drain. 75 mls of Dark red/brown drainage removed from ARUN Bulb drain. Dressing completely saturated and small sanguinous saturation on gown and lateral right abdomen. Cleaned patient's skin with wound cleanser, removed dressing, and covered ARUN site with new sterile gauze using clean technique. Site secured with Tegaderm. Replaced patient's gown with clean one. Patient tolerated well. Will continue to assess.
[2019-09-09] MEDS: HYDROmorphone HCL 2 MG/ML VL IV PRN ×6 (03:46→20:57)
[2019-09-09 05:00] VITALS: BP 98/54
[2019-09-09] MEDS: LACTATED RINGER'S 1,000 ML IV SCH ×2 (06:12→19:27)
[2019-09-09] MEDS: PIPERACILLIN-TAZOB 3.375GM 100 ML IV SCH ×3 (06:19→17:51)
--- NOTE | 2019-09-09 06:26 | NUR ---
Drained an additional 75mls of dark brown/red tinged drainage from ARUN drain.
[2019-09-09 07:18] LABS: Basophils # (auto) 0 uL; Basophils % (auto) 0.3 % (0.0-2.0); Eosinophils # (auto) 0.2 uL; Eosinophils % (auto) 2.5 % (0.0-7.0); Hematocrit 27.3 % (36.0-46.0); Hemoglobin 9.3 g/dL (12.2-16.2); Lymphocytes # (auto) 1.4 uL; Lymphocytes % (auto) 20.9 % (10.0-50.0); Mean Corpuscular Volume 88.3 fL (80.0-100.0); Monocytes # (auto) 0.6 uL; Monocytes % (auto) 9.2 % (0.0-12.0); Neutrophils # (auto) 4.6 uL; Neutrophils % (auto) 67.1 % (37.0-80.0); Platelet Count (auto) 355 10^3/uL (140-450); Red Blood Cells 3.09 10^6/uL (4.0-5.20); Red Cell Distribution Width 13.8 % (11.8-14.3); White Blood Cell 6.9 10^3/uL (4.4-10.8)
[2019-09-09 07:26] LABS: Albumin 2.4 g/dL (3.4-5.0); Calcium 8.3 mg/dL (8.5-10.1); Potassium 4.2 mmol/L (3.5-5.1)
[2019-09-09 07:29] LABS: BUN/Creatinine Ratio 14.9; Bilirubin, Total 1.1 mg/dL (0.2-1.0); Total Protein 5.7 g/dL (6.4-8.2)
[2019-09-09 09:00] VITALS: BP 99/52
[2019-09-09] MEDS: DOCUSATE SOD 100 MG CAP PO SCH ×2 (09:58→20:57)
[2019-09-09] MEDS: PANTOPRAZOLE 40 MG/10 ML VIAL INJ IV SCH (09:58)
--- NOTE | 2019-09-09 12:20 | NUR ---
REMOVED SOILED DRESSING. CLEAN ARUN SITE WITH NS, PATTED DRY. COVERED WITH STERILE GAUZED AND ABD PAD. PT TOLERATED WELL. WILL CONTINUE CARE.
--- NOTE | 2019-09-09 12:21 | NUR ---
Nutrition Follow-up Notes Wt.: 67.6 kg Pt's asleep, no immediate family member at bedside during rounds this morning. per records pt with s/p lap cruz. Pt's no signs of distress noted earlier, currently on Soft diet with fair PO of 65% x 4 per RN doc Est. Needs: 1300 kcal to 1650 kcal (20-25 kcal/kgBW), 52 gms to 65 gms pro (0.8-1.0 gms/kgBW). Will continue to monitor pertinent labs and reassess nutrient need prn Labs: CA 8.3 L, TONY 1.1 H, BIPIN/LT 57/96 H, ALB 2.4 L. Skin: Johnnie scale 19, mod risk, pt's abdominal incision dry and intact per assistant office manager. GI: Pt had 1 BM on 09/08 per assistant office manager. PES: Altered nutrition related lab values r/t current/chronic medical condition aeb hyperchloremia, elev. LFTs, Amylase, Lipase, hypocalcemia and mild hypoalbuminemia Obesity r/t food intake more than body requirement aeb 146% IBW, BMI 29.0 kg/m2 and increased body adiposity Will continue to monitor PO intake, skin status, pertinent labs and weight trend. F/u in 3 to 5 days. Rec.: 1.) Consider Soft Low Fat diet if LFTs remain elev. 2.) Continue close supervision during meals. 32.) If Albumin continues trending down, consider Prostat 1 pkt BID. 3.) Refer pt to RD for further nutrition education and weight monitoring upon discharge. 4.) Continue current plan of care.
[2019-09-09 13:00] VITALS: BP 102/59
--- NOTE | 2019-09-09 15:28 | NUR ---
Assessment Pt is a 38 yr old alert and oriented female. Pt lives with her mom and her significant, Joe Stinson, is her emergency contact at [phone]. Pt is ambulatory and independent with ADL's. Pt stated that she was admitted with lots of pain and had her gallbladder removed. Pt does not have insurance and is working on [employer]. Pt is currently employed. Pt does not have an AD on file. Pt stated that she will have a family member transport her home upon d/c. Pt has no d/c needs at this time. Addendum: 09/09/19 at 1532 by JUANY WILLIAMSON Amended: Links added.
[2019-09-09 17:00] VITALS: BP 92/57
--- NOTE | 2019-09-09 19:15 | NUR ---
Opening Shift Note Assumed care of patient, awake and alert x4. No S/S of distress/SOB. Complaints of pain to the abdomen, pain management options discussed. Call light is within reach, side rails up x2, bed is in lowest position. Family is at bedside. Instructed on POC and to call for assist PRN. All questions and concerns answered, will continue to monitor for changes Q1hr and PRN.
--- NOTE | 2019-09-09 19:30 | NUR ---
Emptied 160cc of serosanguineous fluid from the marry drain. Addendum: 09/10/19 at 0113 by JUAQUIN FERNANDES RN RN Emptied drainage from graduated cylinder, per patient she has been emptying the marry drain into it. The bulb was decompressed and dressing was C/D/I.
--- NOTE | 2019-09-09 19:30 | NUR ---
EMPTIED 120ML OF SEROSANGUINEOUS FLUID FROM ARUN DRAIN.
[2019-09-09 22:00] VITALS: BP 96/51
[2019-09-10] MEDS: HYDROmorphone HCL 2 MG/ML VL IV PRN ×4 (00:03→13:52)
[2019-09-10] MEDS: PIPERACILLIN-TAZOB 3.375GM 100 ML IV SCH ×3 (00:03→13:51)
--- NOTE | 2019-09-10 00:45 | NUR ---
Emptied 60cc of serosanguineous fluid from the marry drain.
--- NOTE | 2019-09-10 04:09 | NUR ---
Emptied 50cc of serosanguineous fluid from the marry drain.
[2019-09-10 05:00] VITALS: BP 92/51
[2019-09-10] MEDS: HYDROcodone-ACET 10/325MG TAB PO PRN ×2 (05:52→10:51)
[2019-09-10 05:58] VITALS: BP 105/65
--- NOTE | 2019-09-10 05:59 | NUR ---
Emptied 40cc of serosanguineous fluid from the marry drain.
--- NOTE | 2019-09-10 07:00 | NUR ---
OPENING SHIFT NOTE ASSUMED CARE OF THE PATIENT FROM THE JEWEL LATHE OPERATOR RN. THE PATIENT IS A&Ox4, NO SIGNS OR SYMPTOMS OF DISTRESS. THE PATIENT'S RESPIRATIONS ARE EVEN AND UNLABORED, ABDOMEN SOFT, BOWEL SOUNDS NORMAL, AND DRESSING HAS MINIMAL SEROSANGUINOUS DRAINAGE. ARUN DRAIN IN PLACE AND WITH 20 ML DRAINAGE. EDUCATED THE PATIENT ON POC AND PATIENT VERBALIZED UNDERSTANDING. THE PATIENT'S CALL LIGHT IS WITHIN REACH AND BED IS IN THE LOWEST, LOCKED POSITION. WILL ROUND HOURLY AND CONTINUE TO MONITOR.
[2019-09-10 07:16] LABS: Hematocrit 29.5 % (36.0-46.0)
[2019-09-10] MEDS: DOCUSATE SOD 100 MG CAP PO SCH (08:28)
[2019-09-10] MEDS: PANTOPRAZOLE 40 MG/10 ML VIAL INJ IV SCH (08:28)
[2019-09-10] MEDS: LACTATED RINGER'S 1,000 ML IV SCH (08:28)
--- NOTE | 2019-09-10 08:32 | NUR ---
DRESSING CHANGED. INCISION SITE IS ASYMPTOMATIC. MINIMAL DRAINAGE. DRESSING CHANGED WITH ABD PAD. WILL CONTINUE TO MONITOR.
[2019-09-10 08:47] VITALS: BP 101/62
[2019-09-10] MEDS: ONDANSETRON HCL 4 MG/2 ML VIAL IV PRN (10:51)
[2019-09-10 12:21] VITALS: BP 96/51
== END 2019-09-10 15:10 | disposition home or self-care (01) | DRG 417 ==
LOC: ER 19:49 → TELE 19:50 → TELE-WESTW 09-02 08:42 → DOU IN ICU 09-04 18:35 → TELE-CENTR 09-06 14:05 → CENTRAL 09-06 21:01
PROVIDERS: ADMIT Nurse Practitioner; ATTEND Internal Medicine
PROC: 0FT44ZZ Resection of Gallbladder, Percutaneous Endoscopic Approach (ICD-10-PCS; 2019-09-03)
PROC: 30233N1 Transfusion of Nonautologous Red Blood Cells into Peripheral Vein, Percutaneous Approach (ICD-10-PCS; principal; 2019-09-05)
DX: K80.00 Calculus of gallbladder with acute cholecystitis without obstruction (principal); K85.10 Biliary acute pancreatitis without necrosis or infection; D64.9 Anemia, unspecified; E66.9 Obesity, unspecified; E87.6 Hypokalemia; I10 Essential (primary) hypertension; Z82.49 Family history of ischemic heart disease and other diseases of the circulatory system; Z68.30 Body mass index [BMI] 30.0-30.9, adult; Z83.3 Family history of diabetes mellitus; Z91.013 Allergy to seafood; Z88.8 Allergy status to other drugs, medicaments and biological substances
CPT/HCPCS: 36415; 74176; 74181; 76705; 78226; 80053; 80076; 81001; 82150; 83690; 83735; 84702; 85014; 85018; 85025; 85610; 85730; 86850; 86900; 86901; 86920; 87070; 87205; 96365; 96367; 96368; 96375; C9113; G0378; J0696; J1885; J1956; J2250; J2405; J2543; J3490; Q0162

== ENCOUNTER 2024-09-17 11:17 | Inpatient (IN) | payer MEDICAID ==
[~2024-09-17] VITALS: Ht 149.9 cm; Wt 69.0 kg
[2024-09-17] VITALS (8 sets, daily range): BP systolic 106–156; BP diastolic 47–82; PULSE 74–119; RESP 14–20; TEMP 98–99.1; O2SAT 100
[~2024-09-17 11:17] MED LIST changes: +AMIT50TA12 PO; -AMIT50TA3 PO; +GABA-1250 PO; -GABA300C10 PO
[2024-09-17] MEDS: SODIUM CHLORIDE 0.9% 1,000 ML IV ONE (11:45)
--- NOTE | 2024-09-17 12:11 | ED.PDOC ---
HPI (NEURO) HPI Comments 43y F who presents to the ED via EMS for chief complaint of generalized weakness. Pt states she was at urgent care earlier this AM for evaluation for generalized weakness with associated dizziness for the past few days and for fall that occurred Sunday with associated syncopal episode. Pt has vitals checked which showed low blood pressure and pt was given oral fluids and EMS was called. EMS arrived on scene, with noted pt have low blood pressure. PT had IV established but no treatments were given by EMS. Pt in the ED, states she has history of heavy periods and states she has heavy menses 2x per month. Pt in the ED, noted to have BP of 85/65 with noted pale complexion and EMS starting IV fluids in the ED.. Pt has noted bruising to the eyebrow and L lip from prior syncopal per prior syncopal. Pt is alert and oriented x 4. Pt states she is currently on her period. Pt otherwise has noted history of heavy periods and anemia and notes prior blood transfusion 5 years prior. Pt otherwise denies any other symptoms at this time. Chief Complaint: General Weakness Time Seen by MD: 12:03 Primary Care Provider: ELIZABET Garcia Notes: Nurses Notes, Medications Information Source: Patient, Emergency Med Personnel Mode of Arrival: EMS Brought in by: EMS Severity: Moderate Dizziness/Weakness Severity: Does not affect activitie Headache Severity: Moderate Timing: Hours, Days Duration: Since onset Prehospital treatment: IVF, Treatment (oral fluids) Headache Quality: Aching Weakness Location: Generalized Onset: At rest Circumstances: Spontaneous Symptoms: Weakness History of: Anemia Modifying factors: Nothing Associated Signs and Symptoms: Headache, Weakness Past Medical History PAST MEDICAL HISTORY: Anemia, HTN Past Medical History (Other): menorrhagia Surgical History: Cholecystectomy, Tubal Ligation 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: No Pertinent ACCOUNTANT CONTROLLER History Family History Family History: Family hx of DM, Family hx of HTN Social History Smoker: Non-Smoker Alcohol: Denies ETOH Use Drugs: Denies Drug Use Lives In: Home Constitutional: reports: fatigue, weakness; denies: chills, diaphoresis, fever, malaise, sweats, others EENTM: denies: blurred vision, double vision, ear bleeding, ear discharge, ear drainage, ear pain, ear ringing, eye pain, eye redness, hearing loss, mouth pain, mouth swelling, nasal discharge, nose bleeding, nose congestion, nose pain, photophobia, tearing, throat pain, throat swelling, voice changes, others Respiratory: denies: cough, hemoptysis, orthopnea, SOB at rest, shortness of breath, SOB with excertion, stridor, wheezing, others Cardiovascular: denies: chest pain, dizzy spells, diaphoresis, Dyspnea on exertion, edema, irregular heart beat, left arm pain, lightheadedness, palpitations, PND, syncope, others Gastrointestinal: denies: abdomen distended, abdominal pain, blood streaked bowels, constipated, diarrhea, dysphagia, difficulty swallowing, hematemesis, melena, nausea, poor appetite, poor fluid intake, rectal bleeding, rectal pain, vomiting, others Genitourinary: denies: abnormal vagina bleeding, burning, dyspareunia, dysuria, flank pain, frequency, hematuria, incontinence, pain, , vagina discharge, urgency, others Neurological: reports: dizziness, headache, weakness; denies: fainting, left sided numbness, left sided weakness, numbness, paresthesia, pre-existing deficit, right sided numbness, right sided weakness, seizure, speech problems, tingling, tremors, others Musculoskeletal: denies: back pain, gout, joint pain, joint swelling, muscle pain, muscle stiffness, neck pain, others Integumetry: denies: bruises, change in color, change in hair/nails, dryness, laceration, lesions, lumps, rash, wounds, others Allergic/Immunocompromised: denies: Difficulty Healing, Frequent Infections, Hives, Itching, others Hematologic/Lymphatic: denies: anemia, blood clots, easy bleeding, easy bruising, swollen glands, others Endocrine: denies: excessive hunger, excessive sweating, excessive thirst, excessive urination, flushing, intolerance to cold, intolerance to heat, unexplained weight gain, unexplained weight loss, others Psychiatric: denies: anxiety, bipolar disorder, depression, hopeless, panic disorder, schizophrenia, sleepless, suicidal, others All Other Systems: Reviewed and Negative Physical Exam General Appearance: Moderate Distress HEENT: Pale Conjuntivae (L), Pale Conjuntivae (R), Pharynx Normal, TMs Normal Neck: Full Range of Motion, Non-Tender, Normal, Normal Inspection Respiratory: Chest Non-Tender, Lungs Clear, No Accessory Muscle Use, No Respiratory Distress, Normal Breath Sounds Cardiovascular: No Edema, No JVD, No Murmur, No Gallop, Normal Peripheral Pulses, Regular Rate/Rhythm Breast Exam: Deferred Gastrointestinal: No Organomegaly, Non Tender, No Pulsatile Mass, Normal Bowel Sounds, Soft Genitalia: Deferred Pelvic: Deferred Rectal: Deferred Extremities: No calf tenderness, Normal capillary refill, Non-tender, No pedal edema Musculoskeletal : Apperance: Normal Neurologic: Alert, director of retention II-XII nml as Tested, Motor Weakness, Normal Affect, Normal Mood, No Sensory Deficits Cerebellar Function: Normal Reflexes: Normal Skin: Dry, Pallor, Warm Lymphatic: No Adenopathy Was a procedure done? Was a procedure done?: No Differential Diagnosis (SZ) Seizure: N/A General Weakness: Anemia, Dehydration, Electrolyte imbalance, Encephalopathy, Hypoglycemia, Other (menorrgia, severe anemia, ) X-Ray, Labs, Meds, VS Vital Signs Date Time Temp Pulse Resp B/P (MAP) Pulse Ox O2 Delivery O2 Flow Rate FiO2 09/17/24 12:00 87 15 100 Room Air* 0 21 09/17/24 12:00 87 15 91/46 (61) 100 09/17/24 11:17 98.3 60 16 85/65 (72) 100 Lab Test 09/17/24 12:04 Range/Units White Blood Count 5.6 4.4-10.8 10^3/uL Red Blood Count 3.68 L 4.0-5.20 10^6/uL Hemoglobin 6.5 *L 12.2-16.2 g/dL Hematocrit 22.6 L 36.0-46.0 % Mean Corpuscular Volume 61.4 L 80.0-100.0 fL Mean Corpuscular Hemoglobin 17.6 L 28.0-32.0 pg Mean Corpuscular Hemoglobin Concent 28.7 L 32.0-36.0 g/dL Red Cell Distribution Width 19.0 H 11.8-14.3 % Platelet Count 394 140-450 10^3/uL Mean Platelet Volume 8.1 6.9-10.8 fL Neutrophils (%) (Auto) 60.7 37.0-80.0 % Lymphocytes (%) (Auto) 28.6 10.0-50.0 % Monocytes (%) (Auto) 9.1 0.0-12.0 % Eosinophils (%) (Auto) 1.0 0.0-7.0 % Basophils (%) (Auto) 0.6 0.0-2.0 % Neutrophils # (Auto) 3.4 1.6-8.6 10 ^3/uL Lymphocytes # (Auto) 1.6 0.4-5.4 10 ^3/uL Monocytes # (Auto) 0.5 0-1.3 10 ^3/uL Eosinophils # (Auto) 0.1 0-0.8 10 ^3/uL Basophils # (Auto) 0 0-0.2 10 ^3/uL Nucleated Red Blood Cells 0.1 % Prothrombin Time 10.1 9.3-11.8 sec Prothrombin Time INR 0.95 0.9-1.15 Activated Partial Thromboplast Time 24.2 L 24.5-34.5 SEC Sodium Level 139 136-145 mmol/L Potassium Level 4.4 3.5-5.1 mmol/L Chloride Level 108 H 98-107 mmol/L Carbon Dioxide Level 26 20-31 mmol/L Anion Gap 5 5-15 Blood Urea Nitrogen 19 9-23 mg/dL Creatinine 0.69 0.550-1.02 mg/dL Glomerular Filtration Rate Calc 110 >90 mL/min BUN/Creatinine Ratio 27.5 H 10.0-20.0 Serum Glucose 66 L 74-106 mg/dL Calcium Level 9.8 8.7-10.4 mg/dL Beta HCG, Quantitative 1.8 1.5-4.2 mIU/mL Current Medications Medications (Trade) Dose Ordered Sig/Angie Route Start Time Stop Time Status Last Admin Sodium Chloride 1,000 ml @ 1,000 mls/hr Q1H ONCE IV 09/17/24 11:45 09/17/24 12:44 DC 09/17/24 11:45 IV Hep-Lock was established The patient was given a 1 L bolus of normal saline The chemistry panel is within normal limits The CBC shows a hemoglobin of 6.5 and hematocrit 22.6 The patient was typed and screened The patient was being transfused with 2 units of packed red blood cells An ultrasound of the pelvis is pending The patient was being admitted at this time. We have discussed the findings with the patient and she agrees with the management Images Reviewed?: Images reviewed and evaluated by me Time of 1ST Reevaluation: 12:35 Reevaluation 1ST: Unchanged Patient Education/Counseling: Diagnosis, Treatment, Prognosis Family Education/Counseling: No Family Present Additional Information I reviewed the following notes from patient's past medical encounters: The following tests were ordered, and results were reviewed by me: Beta HCG, CT head without contrast, type and screen, 2x IV fluids, BMP, PTPTT, CBC, Pelvic US, Additional Information was gathered from interviewing the following independent historians: EMS I reviewed and agreed with the following test results read by other providers: radiologist I discussed treatment and results with medical personnel and: patient Departure 1 Departure Time of Disposition: 14:16 Impression: Primary Impression: Severe anemia Additional Impressions: Generalized weakness Blood loss anemia Disposition: ADMITTED INPATIENT Admit to: Tele Condition: Fair Critical Care Note Critical Care Time?: Yes (45 min-critical care time only) Stability Stability form required: Yes Unstable for transfer: Telemetry monitoring (Telemetry monitoring required), ED Physician Assesment (Clinical assesment) Heart Score Heart Score: Heart Score Response (Comments) Value History N/A 0 EKG N/A 0 Age N/A 0 Risk Factors N/A 0 Troponin N/A 0 Total 0 I personally scribed for SANTHOSH MAZARIEGOS MD ([email or web address]) on 09/17/24 at 12:11. Electronically submitted by Oliverio Alberto ([email or web address]). SANTHOSH MAZARIEGOS MD Sep 17, 2024 12:11
[2024-09-17 12:20] LABS: Basophils # (auto) 0 10 ^3/uL (0-0.2); Eosinophils # (auto) 0.1 10 ^3/uL (0-0.8); Lymphocytes # (auto) 1.6 10 ^3/uL (0.4-5.4); Mean Corpuscular Hemoglobin 17.6 pg (28.0-32.0); Monocytes # (auto) 0.5 10 ^3/uL (0-1.3); Neutrophils # (auto) 3.4 10 ^3/uL (1.6-8.6)
[2024-09-17 12:23] LABS: Basophils % (auto) 0.6 % (0.0-2.0); Hematocrit 22.6 % (36.0-46.0); Lymphocytes % (auto) 28.6 % (10.0-50.0); Mean Corpuscular Hgb Conc. 28.7 g/dL (32.0-36.0); Mean Corpuscular Volume 61.4 fL (80.0-100.0); Monocytes % (auto) 9.1 % (0.0-12.0); Neutrophils % (auto) 60.7 % (37.0-80.0); Nucleated Red Blood Cells % 0.1 %; Platelet Count (auto) 394 10^3/uL (140-450); Red Blood Cells 3.68 10^6/uL (4.0-5.20); White Blood Cell 5.6 10^3/uL (4.4-10.8)
[2024-09-17 12:32] LABS: Potassium 4.4 mmol/L (3.5-5.1); Sodium 139 mmol/L (136-145)
[2024-09-17 12:33] LABS: Anion Gap 5 (5-15); Calcium 9.8 mg/dL (8.7-10.4); Carbon Dioxide 26 mmol/L (20-31)
[2024-09-17 12:36] LABS: INR 0.95 (0.9-1.15); Partial Thromboplastin Time 24.2 SEC (24.5-34.5); Prothrombin Time 10.1 sec (9.3-11.8)
[2024-09-17 12:38] LABS: BUN/Creatinine Ratio 27.5 (10.0-20.0); Blood Urea Nitrogen 19 mg/dL (9-23)
[2024-09-17 12:40] LABS: Chloride 108 mmol/L (98-107); Glucose 66 mg/dL (74-106); Hemoglobin 6.5 g/dL (12.2-16.2)
--- NOTE | 2024-09-17 12:40 | DVH ---
INDICATION: bleeding TECHNIQUE: Multiple real-time grayscale transabdominal sonographic images along with color and duplex Doppler of the uterus and ovaries were obtained. COMPARISON: None FINDINGS: The uterus measures 15.0 x 9.3 x 7.4 cm. Bulky and heterogenous appearance of the uterus. T here are at least 2 heterogenously hypoechoic myometrial masses, the largest partially endophytic int o the endometrial canal and measuring approximately 7.1 x 5.6 x 5.0, likely fibroids. The endometrial stripe is not well-visualized due to overlying fibroids. The right ovary measures 5.2 x 4.6 x 4.3 cm. A right ovarian simple appearing follicular cyst measuri ng 4.5 cm is present. Normal right ovarian color doppler flow. The left ovary is not visualized. No free fluid is identified. IMPRESSION: 1. Limited transabdominal sonographic evaluation, with nonvisualization of the endometrial stripe due to overlying fibroids. Consider endovaginal sonographic evaluation. 2. Right ovarian follicular cyst measuring 4.5 cm, for which no routine sonographic follow-up is nece ssary. HS:Y
[2024-09-17] MEDS: SODIUM CHLORIDE 0.9% 500 ML IV ONE (12:53)
--- NOTE | 2024-09-17 13:52 | DVHHP2 ---
Patient Family History: Diabetes mellitus G8 MOTHER Family history: Diabetes mellitus G8 MOTHER G8 FATHER Family history: Hypertension G8 MOTHER G8 FATHER Hypertension G8 MOTHER Allergies: Coded Allergies: Iodine (Verified Allergy, Unknown, 07/17/17) Morphine (Verified Allergy, Unknown, 09/17/24) Shellfish Allergy (Verified Allergy, Unknown, 05/06/18) Tramadol (Verified Allergy, Unknown, 09/17/24) Home Meds Reported Medications Amitriptyline Hcl (Amitriptyline Hcl) 50 Mg Tab, 1 TAB PO QPM, #30 TAB 1 Refill 04/30/18 Gabapentin (Gabapentin) 300 Mg Cap, 1 CAP PO TID, #90 CAP 5 Refills 04/30/18 Vital Signs Vital Signs Date Time Temp Pulse Resp B/P (MAP) Pulse Ox O2 Delivery O2 Flow Rate FiO2 09/17/24 12:00 87 15 100 Room Air* 0 21 09/17/24 12:00 91/46 (61) 09/17/24 11:17 98.3 Results Labs Test 09/17/24 12:04 Range/Units White Blood Count 5.6 4.4-10.8 10^3/uL Red Blood Count 3.68 L 4.0-5.20 10^6/uL Hemoglobin 6.5 *L 12.2-16.2 g/dL Hematocrit 22.6 L 36.0-46.0 % Mean Corpuscular Volume 61.4 L 80.0-100.0 fL Mean Corpuscular Hemoglobin 17.6 L 28.0-32.0 pg Mean Corpuscular Hemoglobin Concent 28.7 L 32.0-36.0 g/dL Red Cell Distribution Width 19.0 H 11.8-14.3 % Platelet Count 394 140-450 10^3/uL Mean Platelet Volume 8.1 6.9-10.8 fL Neutrophils (%) (Auto) 60.7 37.0-80.0 % Lymphocytes (%) (Auto) 28.6 10.0-50.0 % Monocytes (%) (Auto) 9.1 0.0-12.0 % Eosinophils (%) (Auto) 1.0 0.0-7.0 % Basophils (%) (Auto) 0.6 0.0-2.0 % Neutrophils # (Auto) 3.4 1.6-8.6 10 ^3/uL Lymphocytes # (Auto) 1.6 0.4-5.4 10 ^3/uL Monocytes # (Auto) 0.5 0-1.3 10 ^3/uL Eosinophils # (Auto) 0.1 0-0.8 10 ^3/uL Basophils # (Auto) 0 0-0.2 10 ^3/uL Nucleated Red Blood Cells 0.1 % Prothrombin Time 10.1 9.3-11.8 sec Prothrombin Time INR 0.95 0.9-1.15 Activated Partial Thromboplast Time 24.2 L 24.5-34.5 SEC Sodium Level 139 136-145 mmol/L Potassium Level 4.4 3.5-5.1 mmol/L Chloride Level 108 H 98-107 mmol/L Carbon Dioxide Level 26 20-31 mmol/L Anion Gap 5 5-15 Blood Urea Nitrogen 19 9-23 mg/dL Creatinine 0.69 0.550-1.02 mg/dL Glomerular Filtration Rate Calc 110 >90 mL/min BUN/Creatinine Ratio 27.5 H 10.0-20.0 Serum Glucose 66 L 74-106 mg/dL Calcium Level 9.8 8.7-10.4 mg/dL Beta HCG, Quantitative 1.8 1.5-4.2 mIU/mL TISH PIKE NP Sep 17, 2024 13:52
[2024-09-17] MEDS ORDERED: NITROGLYCERIN 0.4 MG SL TAB SL PRN (14:00)
[2024-09-17] MEDS ORDERED: ACETAMINOPHEN 325 MG TAB PO PRN (14:00)
[2024-09-17] MEDS ORDERED: MORPHINE SULFATE INJ 2 MG/ml SYRG IV PRN (14:00)
[2024-09-17] MEDS: SODIUM CHLORIDE 0.9% 1,000 ML IV SCH (14:00)
--- NOTE | 2024-09-17 14:19 | DVH ---
EXAM: CT HEAD WITHOUT CONTRAST HISTORY: fall COMPARISON: CT ABD PELVIS WO CONTRAST on DOS: 09/05/19 TECHNIQUE: Axial images of the head were obtained and reformatted in coronal and sagittal planes. All CT scans at this medical facility are performed using dose modulation techniques as appropriate t o a performed exam including the following: Automated exposure control was utilized; adjustment of th e MA and/or KV according to patient size; and use of iterative reconstruction technique. CT Dose: CTDI volume is 54 mGy. Dose-length product is a 63 mGy*cm FINDINGS: There is no evidence of acute intracranial hemorrhage, mass, mass effect midline shift. There is no h ydrocephalus or extra-axial fluid collection. Park-white matter differentiation is maintained. The visualized paranasal sinuses and mastoid air cells are clear. The calvarium is intact. IMPRESSION: 1. No acute intracranial process. HS:Y
[2024-09-17] MEDS: HYDROcodone-ACET 5/325MG TAB PO PRN (15:22)
[2024-09-17] MEDS: HYDROmorphone HCL 2 MG/ML VL/or syr IV PRN (16:55)
[2024-09-17] MEDS: ONDANSETRON HCL 4 MG/2 ML VIAL IV PRN (20:20)
[2024-09-17 20:59] LABS: Urine Bacteria FEW /hpf (None Seen); Urine Blood 3+ /uL (Negative); Urine Clarity Turbid (Clear); Urine Color Light-Yellow (Yellow); Urine Hyaline Cast FEW /lpf (0 - 2); Urine Mucus FEW (None Seen); Urine Protein, UAD TRACE (Negative); Urine Specific Gravity 1.013 (1.001-1.035); Urine Urobilinogen Normal (Negative); Urine WBC 30 /hpf (0 - 5); Urine pH 5.5 (5.0-9.0)
[2024-09-17 21:46] LABS: Hematocrit 34.8 % (36.0-46.0); Hemoglobin 10.8 g/dL (12.2-16.2)
[2024-09-18 04:10] VITALS: PULSE 71; RESP 16; O2SAT 98
[2024-09-18 07:40] VITALS: PULSE 87; RESP 18; O2SAT 97
[2024-09-18] MEDS: medroxyPROGESTERone ACETATE 5 MG TAB PO SCH (10:00)
[2024-09-18] MEDS: PANTOPRAZOLE 40 MG/10 ML VIAL INJ IV SCH (10:29)
[2024-09-18 11:45] VITALS: RESP 16
--- NOTE | 2024-09-18 12:40 | DVHPN2 ---
Progress Note - Dictate Date Seen: Sep 18, 2024 vital signs Vital Sign Date Time Temp Pulse Resp B/P (MAP) Pulse Ox O2 Delivery O2 Flow Rate FiO2 09/18/24 12:27 94 16 165/96 09/18/24 11:35 98.1 99 98.1 09/18/24 07:40 Room Air* 0 21 Total Intake and Output 09/17/24 09/17/24 09/18/24 15:00 23:00 07:00 Intake Total 800 ml 900 ml Output Total 0 ml Balance 800 ml 900 ml medications Current Medications Medications Dose Ordered Sig/Angie Route Start Time Stop Time Status Last Admin Dose Admin Sodium Chloride 1,000 ml @ 120 mls/hr Q8H20M IV 09/17/24 14:00 09/18/24 06:42 120 MLS/HR Acetaminophen/ Hydrocodone Bitart 1 tab Q4HP PRN PO 09/17/24 14:00 09/18/24 04:23 1 TAB Ondansetron HCl 4 mg Q4HP PRN IV 09/17/24 14:00 09/18/24 11:54 4 MG Acetaminophen 650 mg Q6HP PRN PO 09/17/24 14:00 Pantoprazole Sodium 40 mg DAILY IV 09/18/24 10:00 09/18/24 10:29 40 MG Nitroglycerin 0.4 mg Q5MINP PRN SL 09/17/24 14:00 Medroxyprogesterone Acetate 10 mg DAILY PO 09/18/24 10:00 Hydromorphone HCl 0.5 mg Q3HPRN PRN IV 09/17/24 16:45 09/18/24 11:54 0.5 MG objective General Appearance: alert, no distress HEENT: EOMI, PERRLA, normal external inspect of ears, no icterus, no nasal drainage Neck: no carotid bruit, no jugular venous distention (JVD), no lymphadenopathy Chest: normal thorax Respiratory: clear to auscultation, normal air movement Cardiovascular: regular rate and rhythm, no diastolic murmur, no jugular venous distention (JVD), no rub, no systolic murmur Abdominal: soft, no hepatomegaly, no mass, no splenomegaly, no tenderness Genitourinary: grossly normal external Musculoskeletal: no joint tenderness, no swelling Extremities: normal pulses, no calf tenderness, no clubbing, no cyanosis, no edema Skin: no bruising, no jaundice, no rash Neurological: alert, No focal deficit laboratory and microbiology Laboratory Tests 09/17/24 21:25 09/17/24 12:04 Test 09/17/24 12:04 Range/Units Serum Glucose 66 L 74-106 mg/dL Assessment/Plan Subjective Patient is awake and alert Objective Patient was admitted for syncope due to acute on chronic anemia. Patient has a history of uterine fibroid. She is currently on her menses with menorrhagia. Plan Continue current treatment. OB consult. Start Provera. Monitor daily CBC. Plan discussed with: Patient, Other CC Plasma Assessment Blood Product Administration S: [id number] TISH PIKE NP Sep 18, 2024 12:40
--- NOTE | 2024-09-18 12:56 | DVHINCON2 ---
DATE OF CONSULTATION: 09/18/2024 REASON FOR CONSULTATION: Menorrhagia with anemia. HISTORY OF PRESENT ILLNESS: The patient is a 43-year-old 6, para 6, admitted for generalized weakness, syncopal episode and dizziness. The patient's hemoglobin was noted to be 6.5. She received 2 units of blood transfusion. The patient is being seen down in [place] and is supposed to have hysterectomy. Her pelvic ultrasound reveals 15-week size uterus. The patient had syncopal episode with some bruising of eyebrows and lip after the syncopal episode. She has history of heavy menses for the last 5 years and has multiple prior blood transfusions. PAST MEDICAL HISTORY: Hypertension, anemia. PAST SURGICAL HISTORY: Tubal ligation, cholecystectomy. SOCIAL HISTORY: None. FAMILY HISTORY: None. OBSTETRIC AND GYNECOLOGIC HISTORY: Six normal vaginal deliveries. REVIEW OF SYSTEMS: CONSTITUTIONAL: Positive for , fatigue. RESPIRATORY: Denies cough, hemoptysis, or orthopnea. CARDIOVASCULAR: Denies chest pain, dizzy spell, diaphoresis. GASTROINTESTINAL: Denies abdominal pain, constipation or diarrhea. GENITOURINARY: Denies dysuria or dyspareunia. Positive for vaginal bleeding. NEUROLOGICAL: Denies or numbness. Positive for headache. MUSCULOSKELETAL: Denies back pain, gout. ENDOCRINE: Denies excessive hunger or sweating. PSYCHIATRIC: Denies bipolar disorder or anxiety. PHYSICAL EXAMINATION: VITAL SIGNS: Stable. HEENT: Pale conjunctivae. CARDIOVASCULAR: Regular rate and rhythm. LUNGS: Clear to auscultation. BREASTS: Symmetrical. No masses. ABDOMEN: Soft, midline mass consistent with fibroid. PELVIC: Deferred due to current bleeding. Ultrasound of the uterus indicates 15-week size uterus. EXTREMITIES: No clubbing, cyanosis or edema. IMPRESSION: * Symptomatic anemia. * Menorrhagia with fibroid uterus. RECOMMENDATION: The patient to proceed with hysterectomy as soon as possible. Currently, her bleeding is under control and her hemoglobin is up to 10.8. Continue with ferrous sulfate. Follow up promptly with scheduled hysterectomy with [facility]. We will sign off. Thank you very much for this consultation. DO ALEX Barrett/DALTON/MIKE TID: [id number] RECEIPT: [id number]
[2024-09-18 17:59] VITALS: BP 149/101; PULSE 88; RESP 18; TEMP 98.5; O2SAT 100
[2024-09-18 20:00] VITALS: PULSE 101; PULSE 98; RESP 18; O2SAT 98
[2024-09-18 21:00] VITALS: BP 187/102; PULSE 80; RESP 18; TEMP 98.4; O2SAT 100
[2024-09-19] VITALS (9 sets, daily range): BP systolic 87–185; BP diastolic 50–96; PULSE 60–104; RESP 16–20; TEMP 97.3–97.9; O2SAT 96–100
--- NOTE | 2024-09-19 13:40 | ECG ---
[facility] Test Date: 2024-09-17 Test Time: 11:24:23 Pat Name: DOMI MCCALL Department: er Room: 0298T B Gender: F Print Inspector: christopher : 1980 Requested By: SANTHOSH MAZARIEGOS Order Number: [id number] Reading MD: Baldo Lozano Measurements Intervals Earle Rate: 66 P: 25 WI: 144 QRS: 40 QRSD: 71 T: -8 QT: 505 QTc: 530 Interpretive Statements Sinus rhythm Low voltage, precordial leads RSR' in V1 or V2, probably normal variant Borderline T abnormalities, diffuse leads Prolonged QT interval Electronically Signed On 09-19-2024 16:43:42 PST by Baldo Lozano Please click the below link to view image of tracing.
[2024-09-19 13:46] LABS: Basophils # (auto) 0 10 ^3/uL (0-0.2); Eosinophils # (auto) 0.1 10 ^3/uL (0-0.8); Lymphocytes # (auto) 1.4 10 ^3/uL (0.4-5.4); Mean Corpuscular Volume 68.8 fL (80.0-100.0); Monocytes # (auto) 0.3 10 ^3/uL (0-1.3); Monocytes % (auto) 6.1 % (0.0-12.0)
[2024-09-19 13:48] LABS: Basophils % (auto) 0.4 % (0.0-2.0); Eosinophils % (auto) 1.2 % (0.0-7.0); Hematocrit 28.3 % (36.0-46.0); Hemoglobin 8.6 g/dL (12.2-16.2); Lymphocytes % (auto) 25.4 % (10.0-50.0); Mean Corpuscular Hgb Conc. 30.5 g/dL (32.0-36.0); Neutrophils # (auto) 3.6 10 ^3/uL (1.6-8.6); Neutrophils % (auto) 66.9 % (37.0-80.0); Platelet Count (auto) 365 10^3/uL (140-450); Red Blood Cells 4.12 10^6/uL (4.0-5.20); Red Cell Distribution Width 25.5 % (11.8-14.3); White Blood Cell 5.5 10^3/uL (4.4-10.8)
[2024-09-19 13:57] LABS: Potassium 3.7 mmol/L (3.5-5.1); Sodium 141 mmol/L (136-145)
[2024-09-19 13:58] LABS: Anion Gap 7 (5-15); Calcium 9.3 mg/dL (8.7-10.4); Carbon Dioxide 25 mmol/L (20-31); Chloride 109 mmol/L (98-107)
[2024-09-19 14:03] LABS: BUN/Creatinine Ratio 23.3 (10.0-20.0); Blood Urea Nitrogen 14 mg/dL (9-23); Glucose 103 mg/dL (74-106)
--- NOTE | 2024-09-19 19:19 | DVHPN2 ---
Progress Note Date Seen: Sep 19, 2024 Medical Necessity Reason Pt with a Central, PICC or Fol: No Subjective Review of Systems: CVS:Normal, RESPIRATORY:Normal, GI:Normal, :Normal, NEURO:Normal Objective vital signs Vital Sign Date Time Temp Pulse Resp B/P (MAP) Pulse Ox O2 Delivery O2 Flow Rate FiO2 09/19/24 18:39 89 18 148/85 09/19/24 16:30 97.9 99 97.9 09/19/24 08:20 Room Air* 0 21 Total Intake and Output 09/18/24 09/18/24 09/19/24 15:00 23:00 07:00 Intake Total 2455 ml Balance 2455 ml medications Current Medications Medications Dose Ordered Sig/Angie Route Start Time Stop Time Status Last Admin Dose Admin Sodium Chloride 1,000 ml @ 120 mls/hr Q8H20M IV 09/17/24 14:00 09/19/24 18:08 120 MLS/HR Acetaminophen/ Hydrocodone Bitart 1 tab Q4HP PRN PO 09/17/24 14:00 09/18/24 23:44 1 TAB Ondansetron HCl 4 mg Q4HP PRN IV 09/17/24 14:00 09/18/24 16:41 4 MG Acetaminophen 650 mg Q6HP PRN PO 09/17/24 14:00 Pantoprazole Sodium 40 mg DAILY IV 09/18/24 10:00 09/19/24 09:44 40 MG Nitroglycerin 0.4 mg Q5MINP PRN SL 09/17/24 14:00 Medroxyprogesterone Acetate 10 mg DAILY PO 09/18/24 10:00 09/18/24 12:55 10 MG Hydromorphone HCl 0.5 mg Q3HPRN PRN IV 09/17/24 16:45 09/19/24 18:09 0.5 MG Examination: GENERAL:Normal, LUNGS:Normal, CVS:Normal, ABDOMEN:Normal, SKIN:Normal, NEURO:Normal laboratory and microbiology Laboratory Tests 09/19/24 13:00 Test 09/19/24 13:00 Range/Units Serum Glucose 103 74-106 mg/dL Labs and/or images reviewed: Labs reviewed by me, Image(s) reviewed by me Problem List/Assessment/Plan Problem List/Assessment/Plan 1. 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 uterine fibroids Strain Technician consult 3. Acute cystitis with hematuria IV Rocephin Subject: Patient is awake and alert Objective Patient was admitted for acute blood loss anemia likely related to uterine fibroids. 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 Patient reports she is still having some vaginal bleeding. Hemoglobin is stable at 8.6, initially her hemoglobin was 6.5. Patient was also found to have acute cystitis patient was placed on IV Rocephin. Plan Continue current treatment. OB consult appreciated, monitor H&H, transfuse for hemoglobin below seven. Continue Provera. Monitor daily CBC. Plan discussed with: Patient My Orders My Orders Orders - FARHAT ELLER Procedure Category Date Status Time Complete Blood Count LAB 09/20/24 Verified 05:00 Basic Metabolic Panel LAB 09/20/24 Verified 05:00 Ferrous Sulfate Tablet PHA 09/20/24 Verified 08:00 Date of Service: Sep 19, 2024 Billing Provider: NATHANAEL RHODES MD Common Visit Codes: 68069-HPPFRBS INP/OBS CARE (MOD) CC Plasma Assessment Blood Product Administration S: [id number] FARHAT ELLER Sep 19, 2024 19:19
[2024-09-19 20:40] LABS: Hemoglobin 9.9 g/dL (12.2-16.2)
[2024-09-19 20:43] LABS: Hematocrit 32.6 % (36.0-46.0)
[2024-09-19] MEDS: cefTRIAXone 1GM/50ML D5W 50 ML IV ONE (22:59)
[2024-09-20] VITALS (9 sets, daily range): BP systolic 98–149; BP diastolic 55–84; PULSE 68–104; RESP 18–20; TEMP 97.4–98; O2SAT 96–100
[2024-09-20 07:13] LABS: Eosinophils # (auto) 0.1 10 ^3/uL (0-0.8); Hemoglobin 8.9 g/dL (12.2-16.2); Nucleated Red Blood Cells % 0.1 %
[2024-09-20 07:14] LABS: Potassium 3.9 mmol/L (3.5-5.1); Sodium 141 mmol/L (136-145)
[2024-09-20 07:15] LABS: Anion Gap 6 (5-15); Carbon Dioxide 26 mmol/L (20-31)
[2024-09-20 07:16] LABS: Basophils # (auto) 0 10 ^3/uL (0-0.2); Basophils % (auto) 0.1 % (0.0-2.0); Eosinophils % (auto) 1.1 % (0.0-7.0); Hematocrit 29.3 % (36.0-46.0); Lymphocytes # (auto) 2.2 10 ^3/uL (0.4-5.4); Lymphocytes % (auto) 32.7 % (10.0-50.0); Mean Corpuscular Hgb Conc. 30.5 g/dL (32.0-36.0); Mean Corpuscular Volume 68.8 fL (80.0-100.0); Monocytes # (auto) 0.5 10 ^3/uL (0-1.3); Monocytes % (auto) 7.4 % (0.0-12.0); Neutrophils % (auto) 58.7 % (37.0-80.0); Platelet Count (auto) 374 10^3/uL (140-450); Red Blood Cells 4.25 10^6/uL (4.0-5.20); Red Cell Distribution Width 25.8 % (11.8-14.3); White Blood Cell 6.8 10^3/uL (4.4-10.8)
[2024-09-20 07:20] LABS: Glucose 98 mg/dL (74-106)
[2024-09-20 07:21] LABS: BUN/Creatinine Ratio 22.4 (10.0-20.0); Blood Urea Nitrogen 15 mg/dL (9-23)
[2024-09-20 07:23] LABS: Chloride 109 mmol/L (98-107)
[2024-09-20] MEDS: FERROUS SULFATE 325mg EC TAB PO SCH (10:09)
[2024-09-20] MEDS: cefTRIAXone 1GM/50ML D5W 50 ML IV SCH (10:10)
--- NOTE | 2024-09-20 16:40 | DVHPN2 ---
Progress Note Date Seen: Sep 20, 2024 Medical Necessity Reason Pt with a Central, PICC or Fol: No Subjective Review of Systems: CVS:Normal, RESPIRATORY:Normal, GI:Normal Objective vital signs Vital Sign Date Time Temp Pulse Resp B/P (MAP) Pulse Ox O2 Delivery O2 Flow Rate FiO2 09/20/24 13:33 68 18 100/55 09/20/24 13:00 97.5 97 97.5 09/19/24 20:00 Room Air* 0 21 Total Intake and Output 09/19/24 09/19/24 09/20/24 15:00 23:00 07:00 Intake Total 520 ml 1880 ml 2050 ml Balance 520 ml 1880 ml 2050 ml medications Current Medications Medications Dose Ordered Sig/Angie Route Start Time Stop Time Status Last Admin Dose Admin Sodium Chloride 1,000 ml @ 120 mls/hr Q8H20M IV 09/17/24 14:00 09/20/24 13:40 120 MLS/HR Acetaminophen/ Hydrocodone Bitart 1 tab Q4HP PRN PO 09/17/24 14:00 09/18/24 23:44 1 TAB Ondansetron HCl 4 mg Q4HP PRN IV 09/17/24 14:00 09/18/24 16:41 4 MG Acetaminophen 650 mg Q6HP PRN PO 09/17/24 14:00 Pantoprazole Sodium 40 mg DAILY IV 09/18/24 10:00 09/20/24 10:09 40 MG Nitroglycerin 0.4 mg Q5MINP PRN SL 09/17/24 14:00 Medroxyprogesterone Acetate 10 mg DAILY PO 09/18/24 10:00 09/20/24 10:00 10 MG Hydromorphone HCl 0.5 mg Q3HPRN PRN IV 09/17/24 16:45 09/20/24 13:33 0.5 MG Ferrous Sulfate 325 mg BIDWM PO 09/20/24 08:00 09/20/24 10:09 325 MG Ceftriaxone Sodium 50 ml @ 100 mls/hr DAILY@09 IV 09/20/24 09:00 09/20/24 10:10 100 MLS/HR Examination: GENERAL:Normal, LUNGS:Normal, CVS:Normal, ABDOMEN:Normal, SKIN:Normal, NEURO:Normal laboratory and microbiology Laboratory Tests 12/21/24 06:28 Test 09/20/24 06:28 Range/Units Serum Glucose 98 74-106 mg/dL Labs and/or images reviewed: Labs reviewed by me, Image(s) reviewed by me Problem List/Assessment/Plan Problem List/Assessment/Plan 1. Acute blood loss anemia likely related to uterine fibroids trouble tracer consult, Provera 10 mg, transfuse for hemoglobin below seven 2. uterine fibroids [employer] consult 3. Acute cystitis with hematuria IV Rocephin Subject: Patient is awake and alert Objective Patient was admitted for acute blood loss anemia likely related to uterine fibroids. Patient was seen by doctors and pulp roller, and recommends that patient needs a hysterectomy as outpatient. Patient reports she is still having some vaginal bleeding but has improved since yesterday patient is saturating 4-6 pads. Hemoglobin remained stable at 8.9, we will repeat labs in the a.m.. Patient was also found to have acute cystitis patient was placed on IV Rocephin. Plan Continue current treatment. OB consult appreciated, monitor H&H, transfuse for hemoglobin below seven. Continue Provera. Monitor daily CBC. We will likely discharge tomorrow Plan discussed with: Patient My Orders My Orders Orders - FARHAT ELLER Procedure Category Date Status Time Ferrous Sulfate Tablet PHA 09/20/24 In Process 08:00 Ceftriaxone 1gm/50ml PHA 09/20/24 In Process D5w (Rocephin) 09:00 Date of Service: Sep 20, 2024 Billing Provider: NATHANAEL RHODES MD Common Visit Codes: [id number] INP/OBS CARE (MOD) CC Plasma Assessment Blood Product Administration S: [id number] FARHAT ELLER Sep 20, 2024 16:40
[2024-09-21 01:00] VITALS: BP 128/66; PULSE 79; RESP 20; TEMP 97.6; O2SAT 100
[2024-09-21 05:00] VITALS: BP 132/63; PULSE 73; RESP 20; TEMP 97.8; O2SAT 100
[2024-09-21 07:46] LABS: Basophils # (auto) 0 10 ^3/uL (0-0.2); Basophils % (auto) 0.7 % (0.0-2.0); Eosinophils # (auto) 0.1 10 ^3/uL (0-0.8); Lymphocytes # (auto) 0.9 10 ^3/uL (0.4-5.4); Monocytes # (auto) 0.4 10 ^3/uL (0-1.3); Neutrophils # (auto) 3.7 10 ^3/uL (1.6-8.6); White Blood Cell 5.1 10^3/uL (4.4-10.8)
[2024-09-21 07:49] LABS: Eosinophils % (auto) 1.4 % (0.0-7.0); Hematocrit 28.5 % (36.0-46.0); Hemoglobin 8.8 g/dL (12.2-16.2); Lymphocytes % (auto) 17.1 % (10.0-50.0); Mean Corpuscular Hemoglobin 21.3 pg (28.0-32.0); Mean Corpuscular Volume 68.6 fL (80.0-100.0); Monocytes % (auto) 7.1 % (0.0-12.0); Neutrophils % (auto) 73.7 % (37.0-80.0); Platelet Count (auto) 333 10^3/uL (140-450); Red Blood Cells 4.15 10^6/uL (4.0-5.20)
[2024-09-21 08:00] VITALS: PULSE 104; PULSE 52; RESP 20; O2SAT 98
[2024-09-21 08:05] LABS: Red Cell Distribution Width 25.9 % (11.8-14.3)
[2024-09-21 08:44] LABS: Anisocytosis Slight; Hypochromia Moderate; Platelet Estimate Adequate
[2024-09-21 09:00] VITALS: BP 171/84; PULSE 57; RESP 16; TEMP 97.6; O2SAT 94
[2024-09-21] MEDS ORDERED: CIPR-173 PO (10:41)
[2024-09-21] MEDS ORDERED: MEDR5TAB28 PO (10:41)
--- NOTE | 2024-09-21 10:42 | DVHDS2 ---
Discharge Summary Date of Admission Sep 17, 2024 at 13:49 Date of Discharge: Sep 21, 2024 Admitting Diagnosis Acute on chronic anemia Labs/Diagnostic Data: Laboratory Results Test 09/21/24 07:19 09/20/24 06:28 09/17/24 13:35 09/17/24 12:04 White Blood Count 5.1 10^3/uL (4.4-10.8) Red Blood Count 4.15 10^6/uL (4.0-5.20) Hemoglobin 8.8 g/dL (12.2-16.2) Hematocrit 28.5 % (36.0-46.0) Mean Corpuscular Volume 68.6 fL (80.0-100.0) Mean Corpuscular Hemoglobin 21.3 pg (28.0-32.0) Mean Corpuscular Hemoglobin Concent 31.0 g/dL (32.0-36.0) Red Cell Distribution Width 25.9 % (11.8-14.3) Platelet Count 333 10^3/uL (140-450) Mean Platelet Volume 8.0 fL (6.9-10.8) Neutrophils (%) (Auto) 73.7 % (37.0-80.0) Lymphocytes (%) (Auto) 17.1 % (10.0-50.0) Monocytes (%) (Auto) 7.1 % (0.0-12.0) Eosinophils (%) (Auto) 1.4 % (0.0-7.0) Basophils (%) (Auto) 0.7 % (0.0-2.0) Neutrophils # (Auto) 3.7 10 ^3/uL (1.6-8.6) Lymphocytes # (Auto) 0.9 10 ^3/uL (0.4-5.4) Monocytes # (Auto) 0.4 10 ^3/uL (0-1.3) Eosinophils # (Auto) 0.1 10 ^3/uL (0-0.8) Basophils # (Auto) 0 10 ^3/uL (0-0.2) Nucleated Red Blood Cells 0.0 % Platelet Estimate Adequate Hypochromasia (manual) Moderate Anisocytosis (manual) Slight Microcytosis Moderate Sickle Cells Sodium Level 141 mmol/L (136-145) Potassium Level 3.9 mmol/L (3.5-5.1) Chloride Level 109 mmol/L (98-107) Carbon Dioxide Level 26 mmol/L (20-31) Anion Gap 6 (5-15) Blood Urea Nitrogen 15 mg/dL (9-23) Creatinine 0.67 mg/dL (0.550-1.02) Glomerular Filtration Rate Calc 111 mL/min (>90) BUN/Creatinine Ratio 22.4 (10.0-20.0) Serum Glucose 98 mg/dL (74-106) Calcium Level 9.0 mg/dL (8.7-10.4) Urine Color Light-yellow (Yellow) Urine Clarity Turbid (Clear) Urine pH 5.5 (5.0-9.0) Urine Specific [place] 1.013 (1.001-1.035) Urine Protein Trace (Negative) Urine Ketones Negative (Negative) Urine Blood 3+ /uL (Negative) Urine Nitrite Negative (Negative) Urine Bilirubin Negative (Negative) Urine Urobilinogen Normal mg/dL (Negative) Urine Leukocyte Esterase 3+ /uL (Negative) Urine RBC 178 /hpf (0 - 4) Urine WBC 30 /hpf (0 - 5) Urine Squamous Epithelial Cells Mod /hpf (<5) Urine Bacteria Few /hpf (None Seen) Urine Hyaline Casts Few /lpf (0 - 2) Urine Mucus Few (None Seen) Urine Glucose Normal mg/dL (Normal) Prothrombin Time 10.1 sec (9.3-11.8) Prothrombin Time INR 0.95 (0.9-1.15) Activated Partial Thromboplast Time 24.2 SEC (24.5-34.5) Beta HCG, Quantitative 1.8 mIU/mL (1.5-4.2) Other Laboratory Tests 09/21/24 07:19 09/20/24 06:28 Brief Hx & Hospital Course: Patient was admitted for acute blood loss anemia related to uterine fibroids. Patient was given Provera during hospital stay bleeding did improve. Patient was given packed red blood cells, his last hemoglobin was 8.8. Patient was seen by OB avionics supervisor who recommended hysterectomy urgently. Patient was advised to follow up outpatient for hysterectomy, patient verbalized understanding. Patient will be sent home on Provera times 10 days and Cipro x7 days 40 acute cystitis. Patient was given IV Rocephin during hospital stay for acute cystitis Condition at Discharge: Fair Final Diagnosis/Problems List 1. Acute blood loss anemia likely related to uterine fibroids 2. uterine fibroids 3. Acute cystitis with hematuria Discharge Disposition: Home Discharge Instruct/Medications Diet: Regular Activity: Bed rest Follow Up/Referral: OBGYN within 1 week Discharge Statement: "Patient was advised to return to the ER or call 911 if any headaches, dizziness, shortness of breath, chest pain, abdominal pain, bleeding, fevers, or worsening of medical condition. Patient was counseled about treatment plan, medications, possible side effects, patientverbalized understanding. All questions were answered to the best of my ability. This discharge took greater then 30 minutes in planning, reviewing documentation, counseling the patient, and discussing with other team members." ASSESSMENT ASSESSMENT Assessment 1. Acute blood loss anemia likely related to uterine fibroids 2. uterine fibroids 3. Acute cystitis with hematuria FARHAT ELLER [facility] Sep 21, 2024 10:42
[2024-09-21 13:02] VITALS: BP 145/78; PULSE 94; RESP 17; TEMP 97.8; O2SAT 100
== END 2024-09-21 12:30 | disposition home or self-care (01) | DRG 663 ==
LOC: EDBD 11:17 → ER 11:17 → TELE 13:49 → TELE-WESTW 09-18 17:50
PROVIDERS: ADMIT Nurse Practitioner; ATTEND Nurse Practitioner
PROC: 30233N1 Transfusion of Nonautologous Red Blood Cells into Peripheral Vein, Percutaneous Approach (ICD-10-PCS; principal; 2024-09-17)
DX: D62 Acute posthemorrhagic anemia (principal); N30.01 Acute cystitis with hematuria; D25.9 Leiomyoma of uterus, unspecified; E11.9 Type 2 diabetes mellitus without complications; N92.0 Excessive and frequent menstruation with regular cycle; I10 Essential (primary) hypertension; Z82.49 Family history of ischemic heart disease and other diseases of the circulatory system; Z83.3 Family history of diabetes mellitus; Z90.49 Acquired absence of other specified parts of digestive tract; Z88.5 Allergy status to narcotic agent; Z91.013 Allergy to seafood; Z90.710 Acquired absence of both cervix and uterus
CPT/HCPCS: 36415; 70450; 76856; 80048; 81001; 84702; 85014; 85018; 85025; 85610; 85730; 86850; 86900; 86901; 86920; 93005; 96361; 96374; 99291; G0378; J2405; J2470

== ENCOUNTER 2025-02-19 | Emergency (ER) | payer MEDICAID ==
[~2025-02-19] VITALS: Ht 160 cm; Wt 64.0 kg
[~2025-02-19] MED LIST changes: +CIPR-173 PO; +MEDR5TAB28 PO
[2025-02-19] MEDS: SODIUM CHLORIDE 0.9% 1,000 ML IVB ONE (00:15)
[2025-02-19] MEDS: HYDROmorphone HCL 2 MG/ML VL/or syr IV ONE ×7 (00:15→17:34)
[2025-02-19] MEDS: ONDANSETRON HCL 4 MG/2 ML VIAL IV ONE ×6 (00:15→17:33)
--- NOTE | 2025-02-19 00:15 | ED.PDOC ---
GI ASSESSMENT HPI Comments 44 year old female was BIBA with a prior SHx of a Hysterectomy on the 04 of February associated to the c/c of sharp and constant suprapubic ABD pain. Pt states that she is currently in 07/10 pain with N/V fever, chills, CP, and pain that radiates to her back with alleviating factors at this time. Pt denies any of PMHx or sick contact at this time. Chief Complaint: Abdominal Pain Time Seen by MD: 00:10 Primary Care Provider: ELIZABET Reviewed Notes: Nurses Notes, Internal Sales Notes, Medications, Allergies Allergies: Coded Allergies: Iodine (Verified Allergy, Unknown, 07/17/17) Morphine (Verified Allergy, Unknown, 09/17/24) Shellfish Allergy (Verified Allergy, Unknown, 05/06/18) Tramadol (Verified Allergy, Unknown, 09/17/24) Home Meds Active Scripts Ciprofloxacin Hcl (Cipro) 500 Mg Tab, 500 MG PO BID for 7 Days, #14 TAB Prov:FARHAT ELLER [facility] 09/21/24 Medroxyprogesterone Acetate (PROVERA) 5 Mg Tab, 10 MG PO DAILY for 10 Days, #20 TAB Prov:FARHAT ELLER [facility] 09/21/24 Reported Medications Amitriptyline Hcl (Amitriptyline Hcl) 50 Mg Tab, 1 TAB PO QPM, #30 TAB 1 Refill 04/30/18 Gabapentin (Gabapentin) 300 Mg Cap, 1 CAP PO TID, #90 CAP 5 Refills 04/30/18 Information Source: Patient, Emergency Med Personnel Mode of Arrival: EMS Timing: Hours Duration: Since onset, Hours Prehospital treatment: None Quality: Aching, Cramping, Sharp Vomitus: Watery Stool: Normal Severity: Moderate Recent: None Recent Hx of: Abdominal Operations, Abdominal Surgery Pain Location: Periumbilical, Suprapubic Modifying Factors: Position, Movement Associated sign and symptoms: Nausea, Vomiting, Abdominal Pain Past Medical History PAST MEDICAL HISTORY: Anemia, HTN Surgical History: Cholecystectomy, Hysterectomy, Tubal Ligation IPHONE DEVELOPER History: No Pertinent IPHONE DEVELOPER History Family History Family History: Family hx of DM, Family hx of HTN Social History Smoker: Non-Smoker Alcohol: Denies ETOH Use Drugs: Denies Drug Use Lives In: Home Constitutional: reports: chills, fever; denies: diaphoresis, fatigue, malaise, sweats, weakness, others EENTM: denies: blurred vision, double vision, ear bleeding, ear discharge, ear drainage, ear pain, ear ringing, eye pain, eye redness, hearing loss, mouth pain, mouth swelling, nasal discharge, nose bleeding, nose congestion, nose pain, photophobia, tearing, throat pain, throat swelling, voice changes, others Respiratory: denies: cough, hemoptysis, orthopnea, SOB at rest, shortness of breath, SOB with excertion, stridor, wheezing, others Cardiovascular: reports: chest pain; denies: dizzy spells, diaphoresis, Dyspnea on exertion, edema, irregular heart beat, left arm pain, lightheadedness, palpitations, PND, syncope, others Gastrointestinal: reports: abdominal pain, nausea, vomiting; denies: abdomen distended, blood streaked bowels, constipated, diarrhea, dysphagia, difficulty swallowing, hematemesis, melena, poor appetite, poor fluid intake, rectal bleeding, rectal pain, others Genitourinary: denies: abnormal vagina bleeding, burning, dyspareunia, dysuria, flank pain, frequency, hematuria, incontinence, pain, , vagina discharge, urgency, others Neurological: denies: dizziness, fainting, headache, left sided numbness, left sided weakness, numbness, paresthesia, pre-existing deficit, right sided numbness, right sided weakness, seizure, speech problems, tingling, tremors, weakness, others Musculoskeletal: reports: back pain; denies: gout, joint pain, joint swelling, muscle pain, muscle stiffness, neck pain, others Integumetry: denies: bruises, change in color, change in hair/nails, dryness, laceration, lesions, lumps, rash, wounds, others Allergic/Immunocompromised: denies: Difficulty Healing, Frequent Infections, Hives, Itching, others Hematologic/Lymphatic: denies: anemia, blood clots, easy bleeding, easy bruising, swollen glands, others Endocrine: denies: excessive hunger, excessive sweating, excessive thirst, excessive urination, flushing, intolerance to cold, intolerance to heat, unexplained weight gain, unexplained weight loss, others Psychiatric: denies: anxiety, bipolar disorder, depression, hopeless, panic disorder, schizophrenia, sleepless, suicidal, others All Other Systems: Reviewed and Negative Physical Exam General Appearance: Moderate Distress HEENT: Normal ENT Inspection, Pharynx Normal, TMs Normal Neck: Full Range of Motion, Non-Tender, Normal, Normal Inspection Respiratory: Chest Non-Tender, Lungs Clear, No Accessory Muscle Use, No Respiratory Distress, Normal Breath Sounds Cardiovascular: No Edema, No JVD, No Murmur, No Gallop, Normal Peripheral Pulses, Regular Rate/Rhythm Breast Exam: Deferred Gastrointestinal: Diffuse, No Organomegaly, No Pulsatile Mass, Normal Bowel Sounds, Suprapubic, Tenderness Genitalia: Deferred Pelvic: Deferred Rectal: Deferred Extremities: No calf tenderness, Normal capillary refill, Normal inspection, Normal range of motion, Non-tender, No pedal edema Musculoskeletal : Apperance: Normal Neurologic: Alert, group work program director II-XII nml as Tested, No Motor Deficits, Normal Affect, Normal Mood, No Sensory Deficits Cerebellar Function: Normal Reflexes: Normal Skin: Dry, Normal Color, Warm Lymphatic: No Adenopathy Was a procedure done? Was a procedure done?: No GI differential Dx Differential Diagnosis: Appendicitis, Cholecystitis, Constipation, Diverticular disease, Gastritis/PUD, Gastroenteritis, Ischemic Bowel, Pancreatitis, UTI, Urolithiasis, Electrolyte Imbalance, Food Poisoning, Other X-Ray, Labs, Meds, VS Vital Signs Date Time Temp Pulse Resp B/P (MAP) Pulse Ox O2 Delivery O2 Flow Rate FiO2 02/19/25 01:54 82 16 199/106 02/19/25 01:52 82 16 199/106 (137) 98 02/19/25 00:15 90 18 123/80 02/19/25 00:08 98.7 104 22 134/119 (124) 100 98.7 Lab Test 02/19/25 00:31 02/19/25 00:20 Range/Units Urine Color Yellow Yellow Urine Clarity Turbid H Clear Urine pH 5.5 5.0-9.0 Urine Specific [place] 1.039 H 1.001-1.035 Urine Protein 2+ H Negative Urine Ketones 1+ H Negative Urine Blood 2+ H Negative /uL Urine Nitrite Negative Negative Urine Bilirubin Negative Negative Urine Urobilinogen 2 H Negative mg/dL Urine Leukocyte Esterase 3+ Negative /uL Urine RBC 14 0 - 4 /hpf Urine Microscopic WBC 100 H 0-5 /HPF Urine Squamous Epithelial Cells Mod <5 /hpf Urine Bacteria Many H None Seen /hpf Urine Hyaline Casts Many 0 - 2 /lpf Urine Mucus Many None Seen Urine Glucose Trace Normal mg/dL White Blood Count 13.8 H 4.4-10.8 10^3/uL Red Blood Count 5.25 H 4.0-5.20 10^6/uL Hemoglobin 12.0 L 12.2-16.2 g/dL Hematocrit 37.4 36.0-46.0 % Mean Corpuscular Volume 71.2 L 80.0-100.0 fL Mean Corpuscular Hemoglobin 22.9 L 28.0-32.0 pg Mean Corpuscular Hemoglobin Concent 32.2 32.0-36.0 g/dL Red Cell Distribution Width 29.2 H 11.8-14.3 % Platelet Count 767 *H 140-450 10^3/uL Mean Platelet Volume 8.0 6.9-10.8 fL Neutrophils (%) (Auto) 86.9 H 37.0-80.0 % Lymphocytes (%) (Auto) 9.5 L 10.0-50.0 % Monocytes (%) (Auto) 3.1 0.0-12.0 % Eosinophils (%) (Auto) 0.0 0.0-7.0 % Basophils (%) (Auto) 0.5 0.0-2.0 % Neutrophils # (Auto) 12.0 H 1.6-8.6 10 ^3/uL Lymphocytes # (Auto) 1.3 0.4-5.4 10 ^3/uL Monocytes # (Auto) 0.4 0-1.3 10 ^3/uL Eosinophils # (Auto) 0 0-0.8 10 ^3/uL Basophils # (Auto) 0.1 0-0.2 10 ^3/uL Nucleated Red Blood Cells 0.0 % Platelet Estimate Pending Prothrombin Time 10.7 9.3-11.8 sec Prothrombin Time INR 1.01 0.9-1.15 Activated Partial Thromboplast Time 25.3 24.5-34.5 SEC Sodium Level 144 136-145 mmol/L Potassium Level 3.8 3.5-5.1 mmol/L Chloride Level 105 98-107 mmol/L Carbon Dioxide Level 21 20-31 mmol/L Anion Gap 18 H 5-15 Blood Urea Nitrogen 21 9-23 mg/dL Creatinine 1.01 0.550-1.02 mg/dL Glomerular Filtration Rate Calc 70 >90 mL/min BUN/Creatinine Ratio 20.8 H 10.0-20.0 Serum Glucose 129 H 74-106 mg/dL Calcium Level 10.4 8.7-10.4 mg/dL Total Bilirubin 0.5 0.2-1.0 mg/dL Aspartate Amino Transferase (AST) 21 13-40 U/L Alanine Aminotransferase (ALT) 31 7-40 U/L Alkaline Phosphatase 247 H 46-116 U/L Total Protein 9.3 H 5.7-8.2 g/dL Albumin 5.6 H 3.2-4.8 g/dL Lipase 33 12-53 U/L Current Medications Medications (Trade) Dose Ordered Sig/Angie Route Start Time Stop Time Status Last Admin Ondansetron HCl (Zofran) 4 mg ONCE ONCE IV 02/19/25 00:15 02/19/25 00:16 DC 02/19/25 00:15 Hydromorphone HCl (Dilaudid Injection) 1 mg ONCE ONCE IV 02/19/25 00:15 02/19/25 00:16 DC 02/19/25 00:15 PATIENT: DOMI MCCALL ACCT: [id number] UNIT: [id number] : 1980 LOC: ER ROOM / BED: / AGE / SEX: 44 / F ADM STATUS: REG ER SERVICE 001 ORDERING PHYSICIAN: DONNY ROBIN MD PROCEDURE(s): ABPLIV - CT AB PEL WITH IV CON ONLY REASON: abd pain s/p hysterectomy ORDER NUMBER(s): [id number], ACCESSION NUMBER(s): [id number] CLINICAL HISTORY: abd pain s/p hysterectomy TECHNIQUE: CT of the abdomen and pelvis was performed with intravenous contrast. 100 mL Omnipaque 300 This exam was performed according to our departmental dose optimization program. Up-to-date CT equipment and radiation dose reduction techniques are utilized as appropriate. CTDIVol: 0.14+ 6.1 mGy DLP: 335.51 mGy-cm WID: COMPARISON: CT abdomen and pelvis from 09/05/2019 FINDINGS: Lower Thorax: Bilateral breast implants. Lung bases are clear. Normal-sized heart without pericardial effusion. Liver and Biliary system: Unremarkable apart from prior cholecystectomy. Spleen: Unremarkable. Adrenal Glands and Kidneys: There are calcifications in the right adrenal gland. The left adrenal gland is unremarkable. Pancreas and Retroperitoneum: Mild pancreatic atrophy. No retroperitoneal lymphadenopathy. Aorta and Major Vessels: Aortoiliac vessels are patent and normal caliber Bowel, Mesentery and Peritoneal space: Normal caliber small and large bowel. Normal appendix. Trace ascites. No free air or fluid collection. Pelvis: Prior hysterectomy. The ovaries are grossly unremarkable. There is no pelvic lymphadenopathy. Urinary bladder is mildly Distended. Abdominal wall and Osseous Structures: Prior laparotomy transversely oriented in the infrarenal anterior abdominal wall. There is a small loculated fluid collection in the midline pelvic anterior abdominal wall measuring 3.6 cm by 8.3 mm on series 2, image 63. There is soft tissue stranding in the low anterior abdominal wall as well as a few locules of gas. Soft tissue scarring in the anterior and posterior abdominal wall. No destructive osseous lesion. IMPRESSION: 1. Postoperative changes of hysterectomy with soft tissue stranding and a few locules of gas in the anterior abdominal wall. 2. Small loculated fluid collection in the low anterior midline abdominal wall subjacent to incision which could be postoperative collection though a developing abscess is a consideration. Correlate with clinical symptoms. 3. Trace ascites. 4. Calcifications of the right adrenal gland which may be from prior hemorrhage or infection. Time of 1ST Reevaluation: 00:41 Reevaluation 1ST: Unchanged Patient Education/Counseling: Diagnosis, Treatment Family Education/Counseling: No Family Present Departure 1 Departure Time of Disposition: 02:06 Impression: Primary Impression: Intractable vomiting with nausea Additional Impressions: Postoperative abdominal pain UTI (urinary tract infection) Dehydration Hypertensive urgency Disposition: 09 ADMITTED INPATIENT Admit to: Med Surg Condition: Guarded Comments Abdominal Pain and Vomiting in Post-hysterectomy Patient Chief Complaint: Diffuse abdominal pain with nausea and vomiting History of Present Illness: 44-year-old female presents with a 2-day history of diffuse abdominal pain accompanied by nausea and vomiting. Patient is notable for having undergone a hysterectomy a few weeks ago. She has a significant past medical history of brain aneurysm with prior intracranial hemorrhage. The patient is currently experiencing diffuse abdominal tenderness and has been noted to be hypertensive. The symptoms have been persistent, leading to concerns about post-operative complications and dehydration. Review of Systems: Constitutional: Reports fatigue, likely due to dehydration Gastrointestinal: Positive for abdominal pain, nausea, and vomiting Cardiovascular: Hypertension noted All other systems reviewed and negative Past Medical History: Brain aneurysm with intracranial hemorrhage Past Surgical History: Recent hysterectomy (2 weeks ago) Physical Exam: Abdomen: Diffusely tender Lab Results: WBC: 13.8 (Elevated) Hemoglobin: 12 Hematocrit: 37 Platelets: 767 (Elevated) Creatinine: 21 and 1 (Normal) Alpha phosphate: 247 (Elevated) Urinalysis: Positive for urinary tract infection Imaging and Other Relevant Results: CT Abdomen/Pelvis: - Post-operative changes from recent hysterectomy - Small loculated fluid collection in lower anterior midline abdominal wall - Possible post-operative fluid collection vs. less likely abscess - Trace ascites noted Medical Decision Making: Summary Statement: 44-year-old female with recent hysterectomy presenting with abdominal pain, vomiting, dehydration, and hypertensive urgency, found to have UTI and post-operative fluid collection. Problem List: 1. Intractable vomiting with dehydration 2. Post-operative abdominal pain 3. Urinary tract infection 4. Hypertensive urgency 5. Post- operative fluid collection Differential Diagnosis: Post-operative infection, post-operative fluid collection vs abscess, dehydration, medication-related complications, post- operative ileus, urinary tract infection, hypertensive urgency ED Course: Patient received IV fluid resuscitation, IV Rocephin for UTI, Dilaudid for pain control, Zofran for nausea, and hydralazine for blood pressure management. Decision made to admit for further management. Assessment and Plan: 1. Intractable Vomiting with Dehydration: - Continue IV fluid resuscitation - Antiemetic therapy with Zofran - Monitor fluid status and electrolytes 2. Post-operative Abdominal Pain: - Pain control with Dilaudid - Monitor fluid collection noted on CT - Serial abdominal exams 3. Urinary Tract Infection: - IV Rocephin initiated - Monitor response to antibiotics 4. Hypertensive Urgency: - Blood pressure control with hydralazine - Regular vital sign monitoring Disposition: Admit to hospital for management of above conditions Billing Information: ICD-10: R10.84 - Generalized abdominal pain ICD-10: R11.2 - Nausea with vomiting ICD-10: N39.0 - Urinary tract infection ICD-10: I16.0 - Hypertensive urgency ICD-10: Z98.89 - Other specified postprocedural states Critical Care Note Critical Care Time?: Yes (35 min-critical care time only) Critical care comment: Total critical care time: Approximately 36 minutes Due to a high probability of clinically significant, life threatening deterioration, the patient required my highest level of preparedness to intervene emergently and I personally spent this critical care time directly and personally managing the patient. This critical care time included obtaining a history; examining the patient; pulse oximetry; ordering and review of studies; arranging urgent treatment with development of a management plan; evaluation of patient's response to treatment; frequent reassessment; and, discussions with other providers. This critical care time was performed to assess and manage the high probability of imminent, life-threatening deterioration that could result in multi-organ failure. It was exclusive of separately billable procedures and treating other patients. Stability Stability form required: No Heart Score Heart Score: Heart Score Response (Comments) Value History Slightly Suspicious 0 EKG Normal 0 Age <45 0 Risk Factors 1 or 2 risk factors 1 Troponin Normal limit 0 Total 1 I personally scribed for DONNY ROBIN MD ([email or web address]) on 02/19/25 at 00:15. Electronically submitted by Rickie Rodas ([email or web address]). I personally scribed for DONNY ROBIN MD ([email or web address]) on 02/19/25 at 01:42. Electronically submitted by Rickie Rodas ([email or web address]). DONNY ROBIN MD February 19, 2025 00:15
[2025-02-19 00:32] LABS: Basophils # (auto) 0.1 10 ^3/uL (0-0.2); Eosinophils # (auto) 0 10 ^3/uL (0-0.8); Lymphocytes # (auto) 1.3 10 ^3/uL (0.4-5.4); Monocytes # (auto) 0.4 10 ^3/uL (0-1.3); Red Blood Cells 5.25 10^6/uL (4.0-5.20)
[2025-02-19 00:33] LABS: Basophils % (auto) 0.5 % (0.0-2.0); Hematocrit 37.4 % (36.0-46.0); Lymphocytes % (auto) 9.5 % (10.0-50.0); Mean Corpuscular Hemoglobin 22.9 pg (28.0-32.0); Mean Corpuscular Hgb Conc. 32.2 g/dL (32.0-36.0); Mean Corpuscular Volume 71.2 fL (80.0-100.0); Monocytes % (auto) 3.1 % (0.0-12.0); Neutrophils % (auto) 86.9 % (37.0-80.0); Red Cell Distribution Width 29.2 % (11.8-14.3); White Blood Cell 13.8 10^3/uL (4.4-10.8)
[2025-02-19 00:49] LABS: Platelet Count (auto) 767 10^3/uL (140-450)
[2025-02-19 00:51] LABS: Alanine Aminotransferase 31 U/L (7-40); Anion Gap 18 (5-15); Aspartate Aminotransferase 21 U/L (13-40); BUN/Creatinine Ratio 20.8 (10.0-20.0); Bilirubin, Total 0.5 mg/dL (0.2-1.0); Blood Urea Nitrogen 21 mg/dL (9-23); Calcium 10.4 mg/dL (8.7-10.4); Carbon Dioxide 21 mmol/L (20-31); Chloride 105 mmol/L (98-107); Lipase 33 U/L (12-53); Potassium 3.8 mmol/L (3.5-5.1); Sodium 144 mmol/L (136-145)
[2025-02-19 00:54] LABS: Albumin 5.6 g/dL (3.2-4.8); Alkaline Phosphatase 247 U/L (46-116); Glucose 129 mg/dL (74-106); Total Protein 9.3 g/dL (5.7-8.2)
[2025-02-19 00:57] LABS: Urine Bacteria MANY /hpf (None Seen); Urine Blood 2+ /uL (Negative); Urine Clarity Turbid (Clear); Urine Color Yellow (Yellow); Urine Hyaline Cast MANY /lpf (0 - 2); Urine Mucus MANY (None Seen); Urine Protein, UAD 2+ (Negative); Urine Specific Gravity 1.039 (1.001-1.035); Urine Squamous Epithelial Cell MOD /hpf (<5); Urine Urobilinogen 2 mg/dL (Negative); Urine WBC 100 /HPF (0-5); Urine pH 5.5 (5.0-9.0)
[2025-02-19] MEDS: IOHEXOL 300 MG/ML 100ML BOTTLE IJ ONE (00:58)
[2025-02-19 00:59] LABS: INR 1.01 (0.9-1.15); Partial Thromboplastin Time 25.3 SEC (24.5-34.5); Prothrombin Time 10.7 sec (9.3-11.8)
--- NOTE | 2025-02-19 01:36 | DVH ---
CLINICAL HISTORY: abd pain s/p hysterectomy TECHNIQUE: CT of the abdomen and pelvis was performed with intravenous contrast. 100 mL Omnipaque 300 This exam was performed according to our departmental dose optimization program. Up-to-date CT equip ment and radiation dose reduction techniques are utilized as appropriate. CTDIVol: 0.14+ 6.1 mGy DLP: 335.51 mGy-cm WID: COMPARISON: CT abdomen and pelvis from 09/05/2019 FINDINGS: Lower Thorax: Bilateral breast implants. Lung bases are clear. Normal-sized heart without pericardial effusion. Liver and Biliary system: Unremarkable apart from prior cholecystectomy. Spleen: Unremarkable. Adrenal Glands and Kidneys: There are calcifications in the right adrenal gland. The left adrenal gla nd is unremarkable. Pancreas and Retroperitoneum: Mild pancreatic atrophy. No retroperitoneal lymphadenopathy. Aorta and Major Vessels: Aortoiliac vessels are patent and normal caliber Bowel, Mesentery and Peritoneal space: Normal caliber small and large bowel. Normal appendix. Trace a scites. No free air or fluid collection. Pelvis: Prior hysterectomy. The ovaries are grossly unremarkable. There is no pelvic lymphadenopathy. Urinary bladder is mildly Distended. Abdominal wall and Osseous Structures: Prior laparotomy transversely oriented in the infrarenal ante rior abdominal wall. There is a small loculated fluid collection in the midline pelvic anterior abdom inal wall measuring 3.6 cm by 8.3 mm on series 2, image 63. There is soft tissue stranding in the lo w anterior abdominal wall as well as a few locules of gas. Soft tissue scarring in the anterior and p osterior abdominal wall. No destructive osseous lesion. IMPRESSION: 1. Postoperative changes of hysterectomy with soft tissue stranding and a few locules of gas in the a nterior abdominal wall. 2. Small loculated fluid collection in the low anterior midline abdominal wall subjacent to incision which could be postoperative collection though a developing abscess is a consideration. Correlate wi th clinical symptoms. 3. Trace ascites. 4. Calcifications of the right adrenal gland which may be from prior hemorrhage or infection.
[2025-02-19] MEDS: hydrALAZINE HCL 20 MG/ML VL IV ONE (02:25)
[2025-02-19 02:53] LABS: Anisocytosis Moderate; Hypochromia Moderate
[2025-02-19 02:54] LABS: Large Platelets FEW
[2025-02-19 02:55] LABS: Platelet Estimate Marked
[2025-02-19 03:00] VITALS: PULSE 90; RESP 20; O2SAT 96
[2025-02-19 07:30] VITALS: TEMP 98.2
[2025-02-19 08:00] VITALS: PULSE 78; RESP 18; O2SAT 97
[2025-02-19] MEDS: PIPERACILLIN-TAZO 4.5GM 100 ML IV ONE (10:22)
[2025-02-19] MEDS: KETAMINE 50mg/ML 1ml syringe IV ONE (12:13)
[2025-02-19] MEDS: metroNIDAZOLE 500MG/100ML 100 ML IV ONE (12:42)
[2025-02-19 17:25] VITALS: O2SAT 96
[2025-02-19 17:34] VITALS: BP 171/101; PULSE 103; RESP 18
== END 2025-02-19 18:20 | disposition short-term general hospital (02) ==
LOC: ER → EDBD → ER 18:20
DX: N39.0 Urinary tract infection, site not specified (principal); E86.0 Dehydration; I16.0 Hypertensive urgency; I10 Essential (primary) hypertension; G89.18 Other acute postprocedural pain; Z79.899 Other long term (current) drug therapy; Z86.79 Personal history of other diseases of the circulatory system; Z88.5 Allergy status to narcotic agent; Z88.8 Allergy status to other drugs, medicaments and biological substances; Z90.49 Acquired absence of other specified parts of digestive tract; Z90.710 Acquired absence of both cervix and uterus; Z91.041 Radiographic dye allergy status
CPT/HCPCS: 36415; 74177; 80053; 81001; 82947; 83690; 85025; 85610; 85730; 96365; 96367; 96375; 96376; 99285; J0360; J1171; J2405; J2543; J3490; Q9967; 82962

== ENCOUNTER 2025-05-14 22:21 | Inpatient (IN) | payer MEDICAID ==
[~2025-05-14] VITALS: Ht 149.9 cm; Wt 62.6 kg
[2025-05-14] MEDS: SODIUM CHLORIDE 0.9% 1,000 ML IV ONE (00:14)
--- NOTE | 2025-05-14 23:06 | ECG ---
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
--- NOTE | 2025-05-14 23:25 | ED.PDOC ---
GI ASSESSMENT HPI Comments 44-year-old female came to ER for abdominal pain. Patient underwent hysterectomy last February 04 at [facility]. Patient was seen here last February 19, for intra-abdominal abscess status post hysterectomy. Patient was then transferred to [facility]. About 6 hours ago, patient developed sudden-onset epigastric abdominal pain radiating to her chest, associated bolus of nausea and vomiting. Patient states pain is similar to the one she had last February 19 REVIEW OF SYSTEMS: No fever, no chills, or fatigue HEENT: No sore throat, no earache, no congestion, no neck pain. Cardiac: (+) chest pain. No palpitations. Lungs: No shortness of breath, no cough. GI: (+) nausea, (+) vomiting, no diarrhea, no constipation, (+) abdominal pain : No dysuria, frequency, or urgency. No hematuria. Musculoskeletal: No joint pain , no joint swelling, no extremity edema. Skin: No rash, no itching. Neuro: No headache, no dizziness, no weakness Physical exam General: Awake, alert and oriented. No acute distress. Skin: Skin in warm, dry and intact. Appropriate color for ethnicity. Nailbeds pink with no cyanosis. HEENT: The head is normocephalic and atraumatic. Conjunctivae are clear without exudates or hemorrhage. Sclera is non-icteric. EOM are intact. No signs of nystagmus. Eyelids are normal in appearance without swelling or lesions. Oral mucosa is pink and moist Neck: The neck is supple with normal range of motion. No JVD. Cardiac: Heart rate and rhythm are normal. No murmurs, gallops, or rubs are auscultated. Respiratory: No signs of respiratory distress. Lung sounds are clear in all lobes bilaterally without rales, rhonchi, or wheezes. Abdominal: Abdomen is soft, non-tender without distention. Bowel sounds are present and normoactive in all four quadrants. Extremities: Upper and lower extremities are atraumatic in appearance without deformity or edema. Neurological: The patient is awake, alert and oriented to person, place, and time with normal speech. Speech is clear. There is no facial asymmetry. Psychiatric: Appropriate mood and affect. Good judgement and insight. No visual or auditory hallucinations. Chief Complaint: Chest Pain Time Seen by MD: 23:25 Primary Care Provider: RAJU Reviewed Notes: Nurses Notes Allergies: Coded Allergies: Iodine (Verified Allergy, Unknown, 07/17/17) Morphine (Verified Allergy, Unknown, 09/17/24) Shellfish Allergy (Verified Allergy, Unknown, 05/06/18) Tramadol (Verified Allergy, Unknown, 09/17/24) Home Meds Active Scripts Ciprofloxacin Hcl (Cipro) 500 Mg Tab, 500 MG PO BID for 7 Days, #14 TAB Prov:NOAHFARHAT FERNANDES [facility] 09/21/24 Medroxyprogesterone Acetate (PROVERA) 5 Mg Tab, 10 MG PO DAILY for 10 Days, #20 TAB Prov:NOAH OSMANIFARHAT [facility] 09/21/24 Reported Medications Amitriptyline Hcl (Amitriptyline Hcl) 50 Mg Tab, 1 TAB PO QPM, #30 TAB 1 Refill 04/30/18 Gabapentin (Gabapentin) 300 Mg Cap, 1 CAP PO TID, #90 CAP 5 Refills 04/30/18 Information Source: Patient Mode of Arrival: Ambulatory Timing: Hours Duration: Since onset Past Medical History PAST MEDICAL HISTORY: Anemia, HTN Surgical History: Cholecystectomy, Hysterectomy, 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 Was a procedure done?: No GI differential Dx Differential Diagnosis: Diverticular disease, Gastritis/PUD, Gastroenteritis, Inflammatory BD, Ischemic Bowel, Other (Postoperative pain) X-Ray, Labs, Meds, VS Vital Signs Date Time Temp Pulse Resp B/P (MAP) Pulse Ox O2 Delivery O2 Flow Rate FiO2 05/15/25 00:41 101 20 112/76 05/14/25 23:51 79 05/14/25 22:47 81 05/14/25 22:25 98.8 97 22 160/110 98 98.8 Lab Test 05/15/25 01:20 05/15/25 00:19 05/14/25 23:25 Range/Units Lactic Acid Level Pending 2.4 *H 0.4-2.0 mmol/L Troponin I High Sensitivity < 3 L < 3 L </=34 ng/L White Blood Count 8.2 4.4-10.8 10^3/uL Red Blood Count 5.19 4.0-5.20 10^6/uL Hemoglobin 13.8 12.2-16.2 g/dL Hematocrit 40.5 36.0-46.0 % Mean Corpuscular Volume 77.9 L 80.0-100.0 fL Mean Corpuscular Hemoglobin 26.5 L 28.0-32.0 pg Mean Corpuscular Hemoglobin Concent 34.0 32.0-36.0 g/dL Red Cell Distribution Width 18.3 H 11.8-14.3 % Platelet Count 381 140-450 10^3/uL Mean Platelet Volume 8.7 6.9-10.8 fL Neutrophils (%) (Auto) 85.0 H 37.0-80.0 % Lymphocytes (%) (Auto) 11.1 10.0-50.0 % Monocytes (%) (Auto) 3.5 0.0-12.0 % Eosinophils (%) (Auto) 0.0 0.0-7.0 % Basophils (%) (Auto) 0.4 0.0-2.0 % Neutrophils # (Auto) 7.0 1.6-8.6 10 ^3/uL Lymphocytes # (Auto) 0.9 0.4-5.4 10 ^3/uL Monocytes # (Auto) 0.3 0-1.3 10 ^3/uL Eosinophils # (Auto) 0 0-0.8 10 ^3/uL Basophils # (Auto) 0 0-0.2 10 ^3/uL Nucleated Red Blood Cells 0.1 % Sodium Level 143 136-145 mmol/L Potassium Level 3.9 3.5-5.1 mmol/L Chloride Level 106 98-107 mmol/L Carbon Dioxide Level 22 20-31 mmol/L Anion Gap 15 5-15 Blood Urea Nitrogen 17 9-23 mg/dL Creatinine 0.79 0.550-1.02 mg/dL Glomerular Filtration Rate Calc 95 >90 mL/min BUN/Creatinine Ratio 21.5 H 10.0-20.0 Serum Glucose 114 H 74-106 mg/dL Calcium Level 10.2 8.7-10.4 mg/dL Total Bilirubin 0.6 0.2-1.0 mg/dL Aspartate Amino Transferase (AST) 186 H 13-40 U/L Alanine Aminotransferase (ALT) 165 H 7-40 U/L Alkaline Phosphatase 428 H 46-116 U/L Total Protein 8.8 H 5.7-8.2 g/dL Albumin 5.7 H 3.2-4.8 g/dL Lipase 36 12-53 U/L Current Medications Medications (Trade) Dose Ordered Sig/Angie Route Start Time Stop Time Status Last Admin Sodium Chloride 1,000 ml @ 1,000 mls/hr Q1H ONCE IV 05/14/25 23:30 05/15/25 00:29 DC 05/14/25 00:14 Ondansetron HCl (Zofran) 4 mg ONCE ONCE IV 05/14/25 23:30 05/14/25 23:31 DC 05/15/25 00:14 Acetaminophen (Ofirmev) 1,000 mg ONCE ONCE IV 05/14/25 23:30 05/14/25 23:31 DC 05/15/25 00:14 Hydromorphone HCl (Dilaudid Injection) 0.25 mg ONCE ONCE IV 05/15/25 00:30 05/15/25 00:31 DC 05/15/25 00:41 EXAM: XY CHEST XRAY 1 VIEW CLINICAL HISTORY: Epigastric pain TECHNIQUE: Single frontal view of the chest WID: COMPARISON: CHEST TWO VIEWS ROUTINE on DOS: 09/02/19 FINDINGS: Lines and tubes: None Chest: The heart size and pulmonary vasculature is within normal limits. No pleural effusion, pneumothorax, or consolidation. The osseous structures are grossly intact. Cholecystectomy clips IMPRESSION: No acute cardiopulmonary abnormality. MINAL ULTRASOUND CLINICAL HISTORY: Epigastric pain, elevated LFTs TECHNIQUE: Multiple grayscale and color Doppler ultrasound images were obtained of the abdomen. WID: COMPARISON: N same day CT abdomen and pelvis FINDINGS: Liver and Biliary System: Homogeneous echotexture, normal size measuring 13.2 cm. No focal hepatic observations. No intrahepatic bile duct dilatation. The common duct measures 0.3 cm at the mine hepatis although it is ectatic on same day CT abdomen and pelvis. The gallbladder is surgically absent Pancreas: Visualized portions are unremarkable. Mild prominence of the pancreatic duct. Kidneys: The right kidney is 9.1 cm . No hydronephrosis, increased echogenicity, shadowing stone, or focal lesion. IMPRESSION: Prior cholecystectomy. No acute abnormality. Exam: CT CT AB PEL WO CON-NO ORAL OR IV History: Abdominal pain, history of intra-abdominal abscess Comparison Study: US PELVIC on DOS: 09/17/24, CT ABD PELVIS WO CONTRAST on DOS: 09/05/19 TECHNIQUE: Multidetector CT of the abdomen was performed from lung bases to pubic symphysis. Imaging was performed without IV contrast. Axial, coronal and sagittal multiplanar reformats were obtained from the axial data set by the technologist. Radiation Dose Information: Dose-length product is 493 mGy*cm FINDINGS: Evaluation of solid organs is limited due to lack of intravenous contrast use. Findings: Lung Bases: No acute or significant lung base finding. Normal heart size. No pleural or pericardial effusion. Liver: The liver is normal in size. No focal lesions. Gallbladder and Biliary Tree: surgically removed Spleen: Unremarkable Pancreas: The pancreas is grossly normal in appearance. Adrenal Glands: calcified right adrenal gland. left adrenal gland is unrem arkable. Kidneys: Kidneys are grossly normal without calculi or hydronephrosis. Bladder: Grossly unremarkable for degree of distention. Bowel: The stomach is grossly normal in appearance. Small bowel and colon are normal in caliber and distribution. The appendix is not visualized; however, no secondary findings of acute appendicitis identified. Ascites: Absent Lymphadenopathy: No mesenteric, retroperitoneal or periportal lymphadenopathy. Abdominal Wall and Mesentery: Unremarkable. Vasculature: The visualized abdominal aorta is normal in size and caliber. Evaluation of abdominal and pelvic vessels is limited due to lack of intravenous contrast. Pelvic Organs: Status post hysterectomy with postoperative changes. Postoperative changes are also noted of the anterior ventral pelvis without definite CT evidence of abscess at this time. Musculoskeletal: No aggressive focal bony lesions, acute fractures or dislocation. Soft tissues: bilateral breast implants. IMPRESSION: 1. Status post hysterectomy with postoperative changes. Postoperative changes are also noted of the anterior ventral pelvis without definite CT evidence of abscess at this time. 2. No acute abdominal or pelvic finding. Time of 1ST Reevaluation: 23:21 Reevaluation 1ST: Unchanged Patient Education/Counseling: Other (Need for admission) Family Education/Counseling: No Family Present SEPSIS Sepsis Screen Date sepsis recognized/suspect: May 14, 2025 Time Sepsis recognized/suspect: 2224 Recent Procedure: No On Antibiotic Therapy: No Respiratory Rate >20: No Heart Rate >90: No Temp<36 C (96.8 F) or >38.3 C: No SBP <90 or MAP <65 mmHG: No New Acute Mental Status Change: No Is the patient on CPAP, BIPAP,: No Physician Orders Electrocardigram (05/14/25 23:49) Electrocardigram (05/15/25 01:49) Test, Urine (05/14/25 23:17) Urinalysis (05/14/25 23:17) Chest Xray 1 View (05/14/25 23:20) Ct Ab Pel Wo Con-No Oral Or Iv (05/14/25 23:20) LIVER (05/15/25 00:25) Vital Signs Date Time Temp Pulse Resp B/P (MAP) Pulse Ox O2 Delivery O2 Flow Rate FiO2 05/15/25 00:41 101 20 112/76 05/14/25 23:51 79 05/14/25 22:47 81 05/14/25 22:25 98.8 97 22 160/110 98 98.8 Laboratory Tests Test 05/14/25 23:25 05/15/25 01:20 Lactic Acid Level 2.4 mmol/L (0.4-2.0) *H Pending White Blood Count 8.2 10^3/uL (4.4-10.8) Medications Medications Dose Ordered Sig/Angie Route Start Time Stop Time Status Last Admin Dose Admin Acetaminophen 1,000 mg ONCE ONCE IV 05/14/25 23:30 05/14/25 23:31 DC 05/15/25 00:14 Hydromorphone HCl 0.25 mg ONCE ONCE IV 05/15/25 00:30 05/15/25 00:31 DC 05/15/25 00:41 Ondansetron HCl 4 mg ONCE ONCE IV 05/14/25 23:30 05/14/25 23:31 DC 05/15/25 00:14 Sodium Chloride 1,000 ml @ 1,000 mls/hr Q1H ONCE IV 05/14/25 23:30 05/15/25 00:29 DC 05/14/25 00:14 Departure 1 Departure Time of Disposition: 01:59 Impression: Primary Impression: Abdominal pain Additional Impression: Elevated liver function tests Disposition: ADMITTED INPATIENT Condition: Stable Comments Patient admitted to hospitalist service for further treatment, evaluation and monitoring. Critical Care Note Critical Care Time?: No Stability Stability form required: No Heart Score Heart Score: Heart Score Response (Comments) Value History N/A 0 EKG N/A 0 Age N/A 0 Risk Factors N/A 0 Troponin N/A 0 Total 0 I personally scribed for SMITA HERRERA MD ([email or web address]) on 05/14/25 at 23:25. Electronically submitted by Roberto Dominguez ([email or web address]). I personally scribed for SMITA HERRERA MD ([email or web address]) on 05/15/25 at 01:32. Electronically submitted by Roberto Dominguez ([email or web address]). SMITA HERRERA MD May 14, 2025 23:25
[2025-05-14 23:38] LABS: Hemoglobin 13.8 g/dL (12.2-16.2); Mean Corpuscular Hemoglobin 26.5 pg (28.0-32.0)
[2025-05-14 23:40] LABS: Hematocrit 40.5 % (36.0-46.0); Mean Corpuscular Volume 77.9 fL (80.0-100.0); Nucleated Red Blood Cells % 0.1 %
[2025-05-14 23:52] LABS: Anion Gap 15 (5-15); BUN/Creatinine Ratio 21.5 (10.0-20.0); Blood Urea Nitrogen 17 mg/dL (9-23); Calcium 10.2 mg/dL (8.7-10.4); Carbon Dioxide 22 mmol/L (20-31); Chloride 106 mmol/L (98-107); Lipase 36 U/L (12-53); Potassium 3.9 mmol/L (3.5-5.1); Sodium 143 mmol/L (136-145)
[2025-05-14 23:53] LABS: Bilirubin, Total 0.6 mg/dL (0.2-1.0)
[2025-05-15 00:04] LABS: Alanine Aminotransferase 165 U/L (7-40); Albumin 5.7 g/dL (3.2-4.8); Alkaline Phosphatase 428 U/L (46-116); Glucose 114 mg/dL (74-106); Total Protein 8.8 g/dL (5.7-8.2)
[2025-05-15 00:10] LABS: Lactic Acid w/Reflex 2.4 mmol/L (0.4-2.0)
[2025-05-15] MEDS: ONDANSETRON HCL 4 MG/2 ML VIAL IV ONE (00:14)
[2025-05-15] MEDS: ACETAMINOPHEN IV 1000 MG/100ML (10MG/ML) IV ONE (00:14)
[2025-05-15] MEDS: HYDROmorphone HCL 2 MG/ML VL/or syr IV ONE (00:41)
--- NOTE | 2025-05-15 01:18 | DVH ---
EXAM: XY CHEST XRAY 1 VIEW CLINICAL HISTORY: Epigastric pain TECHNIQUE: Single frontal view of the chest WID: COMPARISON: CHEST TWO VIEWS ROUTINE on DOS: 09/02/19 FINDINGS: Lines and tubes: None Chest: The heart size and pulmonary vasculature is within normal limits. No pleural effusion, pneumothorax, or consolidation. The osseous structures are grossly intact. Cholecystectomy clips IMPRESSION: No acute cardiopulmonary abnormality.
--- NOTE | 2025-05-15 01:22 | DVH ---
ABDOMINAL ULTRASOUND CLINICAL HISTORY: Epigastric pain, elevated LFTs TECHNIQUE: Multiple grayscale and color Doppler ultrasound images were obtained of the abdomen. WID: COMPARISON: N same day CT abdomen and pelvis FINDINGS: Liver and Biliary System: Homogeneous echotexture, normal size measuring 13.2 cm. No focal hepatic observations. No intrahepatic bile duct dilatation. The common duct measures 0.3 cm at the mine h epatis although it is ectatic on same day CT abdomen and pelvis. The gallbladder is surgically abs ent Pancreas: Visualized portions are unremarkable. Mild prominence of the pancreatic duct. Kidneys: The right kidney is 9.1 cm . No hydronephrosis, increased echogenicity, shadowing stone, o r focal lesion. IMPRESSION: Prior cholecystectomy. No acute abnormality.
--- NOTE | 2025-05-15 01:47 | DVH ---
Exam: CT CT AB PEL WO CON-NO ORAL OR IV History: Abdominal pain, history of intra-abdominal abscess Comparison Study: US PELVIC on DOS: 09/17/24, CT ABD PELVIS WO CONTRAST on DOS: 09/05/19 TECHNIQUE: Multidetector CT of the abdomen was performed from lung bases to pubic symphysis. Imaging was performed without IV contrast. Axial, coronal and sagittal multiplanar reformats were obtained fr om the axial data set by the technologist. Radiation Dose Information: Dose-length product is 493 mGy*cm FINDINGS: Evaluation of solid organs is limited due to lack of intravenous contrast use. Findings: Lung Bases: No acute or significant lung base finding. Normal heart size. No pleural or pericardial effusion. Liver: The liver is normal in size. No focal lesions. Gallbladder and Biliary Tree: surgically removed Spleen: Unremarkable Pancreas: The pancreas is grossly normal in appearance. Adrenal Glands: calcified right adrenal gland. left adrenal gland is unremarkable. Kidneys: Kidneys are grossly normal without calculi or hydronephrosis. Bladder: Grossly unremarkable for degree of distention. Bowel: The stomach is grossly normal in appearance. Small bowel and colon are normal in caliber and d istribution. The appendix is not visualized; however, no secondary findings of acute appendicitis id entified. Ascites: Absent Lymphadenopathy: No mesenteric, retroperitoneal or periportal lymphadenopathy. Abdominal Wall and Mesentery: Unremarkable. Vasculature: The visualized abdominal aorta is normal in size and caliber. Evaluation of abdominal a nd pelvic vessels is limited due to lack of intravenous contrast. Pelvic Organs: Status post hysterectomy with postoperative changes. Postoperative changes are also no marshall of the anterior ventral pelvis without definite CT evidence of abscess at this time. Musculoskeletal: No aggressive focal bony lesions, acute fractures or dislocation. Soft tissues: bilateral breast implants. IMPRESSION: 1. Status post hysterectomy with postoperative changes. Postoperative changes are also noted of the a nterior ventral pelvis without definite CT evidence of abscess at this time. 2. No acute abdominal or pelvic finding.
[2025-05-15] MEDS: SODIUM CHLORIDE 0.9% 1,000 ML IV ONE ×3 (02:15→04:00)
--- NOTE | 2025-05-15 03:14 | DVHHPRES ---
History of Present Illness Resident Creating Document: TWAN COYNE RESIDENT History of Present Illness Vani Hardin is a 44-year-old female, with relevant past medical history of status post hysterectomy. The patient came to ER via EMS with chief complain of 2 month of intermittent abdominal pain 3/10, cramp-like, increases in sitting position and leaning forward, alleviates temporally with pain killers and irradiates to the pelvic area, associated with nausea. The patient reports she underwent partial hysterectomy on 02/14/25 at [facility]; 2 weeks after the surgery she was admitted in [facility] for intractable abdominal pain, during her admission the abd/pelv CT scan showed: "Small loculated fluid collection in the low anterior midline abdominal wall subjacent to incision which could be postoperative collection though a developing abscess". The patient was then transferred to [facility] for continuation of care. Today, the patient report feeling subjective fever and chills and sudden exacerbation of abdominal pain 10/10 in the pelvic area that irradiates to the epigastric and chest, associated with nausea and vomiting > #6 of gastric content. The patient reports this abdomen pain is similar to the previous episode. The patient denies headache, diarrhea, sick contacts or other symptoms. Patient will be admitted for further assessments and management. Hepatobiliary: Other (Liver steatosis ) Past Surgical History: Cholecystectomy, Hysterectomy (partial hysterectomy 02/14/2025), Other (Liposuccion and tummy tuck surgery. 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 ALCOHOL: none Drugs: None Lives: with Family Review of Systems Constitutional: Yes: Fever, Chills Eyes: No: Pain, Vision change, Conjunctivae inflammation, Eyelid inflammation, Other, Redness ENT: No: Ear pain, Ear discharge, Nose pain, Nose discharge, Nose congestion, Mouth pain, Mouth swelling, Throat pain, Throat swelling, Other Respiratory: No: Cough, Dry, Shortness of breath, SOB with excertion, Wheezing, Hemoptysis, Pleuritic Pain, Sputum, Wheezing, Other Cardiovascular: Chest Pain; No: Palpitations, Orthopnea, Paroxysmal Noc. Dy spnea, Edema, Lt Headedness, Other Gastrointestinal: Nausea, Vomiting, Abdominal Pain Genitourinary: No Dysuria, No Frequency, No Incontinence, No Hematuria, No Retention, No Other Musculoskeletal: No: other, neck pain, shoulder pain, arm pain, back pain, hand pain, leg pain, foot pain Skin: No: Rash, Lesions, Jaundice, Bruising, Other Neurological: No: Weakness, Numbness, Incoordination, Change in speech, Confusion, Seizures, Other Allergies: Coded Allergies: Iodine (Verified Allergy, Unknown, 07/17/17) Morphine (Verified Allergy, Unknown, 09/17/24) Shellfish Allergy (Verified Allergy, Unknown, 05/06/18) Tramadol (Verified Allergy, Unknown, 09/17/24) Exam Vital Signs Vital Signs Date Time Temp Pulse Resp B/P (MAP) Pulse Ox O2 Delivery O2 Flow Rate FiO2 05/15/25 00:41 101 20 112/76 05/14/25 22:25 98.8 98 98.8 General Appearance: Alert, Oriented X3, Cooperative, moderate distress HEENT: Atraumatic, Mucous membr. moist/pink Respiratory: Clear to auscultation, Normal air movement Cardiovascular: Regular rate, Normal S1, Normal S2, No murmurs Abdominal: Normal bowel sounds, Soft, Other (Flat, positive bowel sounds, depressible tender in the epigastric area. Pelvic area: with pfannenstiel-maher inscition scar well healded, depressible, tender to the palpation on the suprapubic area. ) Extremities: No clubbing, No cyanosis, No edema, Normal pulses, No tenderness/swelling Skin: No rashes, No breakdown, No significant lesion Neuro: Normal gait, Normal speech, Strength at 5/5 X4 ext, Normal tone, Sensation intact Psych/Mental Status: Mental status NL, Mood NL Labs/Xrays Labs Test 05/15/25 01:20 05/15/25 00:19 05/14/25 23:25 Range/Units Lactic Acid Level 1.4 0.4-2.0 mmol/L Troponin I High Sensitivity < 3 L </=34 ng/L White Blood Count 8.2 4.4-10.8 10^3/uL Red Blood Count 5.19 4.0-5.20 10^6/uL Hemoglobin 13.8 12.2-16.2 g/dL Hematocrit 40.5 36.0-46.0 % Mean Corpuscular Volume 77.9 L 80.0-100.0 fL Mean Corpuscular Hemoglobin 26.5 L 28.0-32.0 pg Mean Corpuscular Hemoglobin Concent 34.0 32.0-36.0 g/dL Red Cell Distribution Width 18.3 H 11.8-14.3 % Platelet Count 381 140-450 10^3/uL Mean Platelet Volume 8.7 6.9-10.8 fL Neutrophils (%) (Auto) 85.0 H 37.0-80.0 % Lymphocytes (%) (Auto) 11.1 10.0-50.0 % Monocytes (%) (Auto) 3.5 0.0-12.0 % Eosinophils (%) (Auto) 0.0 0.0-7.0 % Basophils (%) (Auto) 0.4 0.0-2.0 % Neutrophils # (Auto) 7.0 1.6-8.6 10 ^3/uL Lymphocytes # (Auto) 0.9 0.4-5.4 10 ^3/uL Monocytes # (Auto) 0.3 0-1.3 10 ^3/uL Eosinophils # (Auto) 0 0-0.8 10 ^3/uL Basophils # (Auto) 0 0-0.2 10 ^3/uL Nucleated Red Blood Cells 0.1 % Sodium Level 143 136-145 mmol/L Potassium Level 3.9 3.5-5.1 mmol/L Chloride Level 106 98-107 mmol/L Carbon Dioxide Level 22 20-31 mmol/L Anion Gap 15 5-15 Blood Urea Nitrogen 17 9-23 mg/dL Creatinine 0.79 0.550-1.02 mg/dL Glomerular Filtration Rate Calc 95 >90 mL/min BUN/Creatinine Ratio 21.5 H 10.0-20.0 Serum Glucose 114 H 74-106 mg/dL Calcium Level 10.2 8.7-10.4 mg/dL Total Bilirubin 0.6 0.2-1.0 mg/dL Aspartate Amino Transferase (AST) 186 H 13-40 U/L Alanine Aminotransferase (ALT) 165 H 7-40 U/L Alkaline Phosphatase 428 H 46-116 U/L Total Protein 8.8 H 5.7-8.2 g/dL Albumin 5.7 H 3.2-4.8 g/dL Lipase 36 12-53 U/L SEPSIS Sepsis Screen Date sepsis recognized/suspect: May 14, 2025 Time Sepsis recognized/suspect: 2224 Recent Procedure: Yes On Antibiotic Therapy: Yes Heart Rate >90: Yes Temp<36 C (96.8 F) or >38.3 C: No SBP <90 or MAP <65 mmHG: No New Acute Mental Status Change: No Is the patient on CPAP, BIPAP,: No Physician Orders Electrocardigram (05/14/25 23:49) Electrocardigram (05/15/25 01:49) Test, Urine (05/14/25 23:17) Urinalysis (05/14/25 23:17) Chest Xray 1 View (05/14/25 23:20) Ct Ab Pel Wo Con-No Oral Or Iv (05/14/25 23:20) LIVER (05/15/25 00:25) Sodium Chloride 0.9% (05/15/25 02:15) Blood Culture (05/15/25 02:01) Vital Signs Date Time Temp Pulse Resp B/P (MAP) Pulse Ox O2 Delivery O2 Flow Rate FiO2 05/15/25 00:41 101 20 112/76 05/14/25 23:51 79 05/14/25 22:47 81 05/14/25 22:25 98.8 97 22 160/110 98 98.8 Laboratory Tests Test 05/14/25 23:25 05/15/25 01:20 Lactic Acid Level 2.4 mmol/L (0.4-2.0) *H 1.4 mmol/L (0.4-2.0) White Blood Count 8.2 10^3/uL (4.4-10.8) Medications Medications Dose Ordered Sig/Angie Route Start Time Stop Time Status Last Admin Dose Admin Acetaminophen 1,000 mg ONCE ONCE IV 05/14/25 23:30 05/14/25 23:31 DC 05/15/25 00:14 1,000 MG Hydromorphone HCl 0.25 mg ONCE ONCE IV 05/15/25 00:30 05/15/25 00:31 DC 05/15/25 00:41 0.25 MG Ondansetron HCl 4 mg ONCE ONCE IV 05/14/25 23:30 05/14/25 23:31 DC 05/15/25 00:14 4 MG Sodium Chloride 1,000 ml @ 1,000 mls/hr Q1H ONCE IV 05/14/25 23:30 05/15/25 00:29 DC 05/14/25 00:14 1,000 MLS/HR Assessment/Plan Assessment/Plan #Intractable abdominal pain rule out pelvic abscess #Status post partial hysterectomy #Hx of pelvic abscess post hysterectomy IV fluids CT abdomen/Pelvic Blood culture Pelvic US Pain management: Ceftriaxone 1g IV Flagyl 500mg IV #UTI, possible acute cystitis IV fluids UA Urine Culture Pain management Ceftriaxone 1g IV #GERD Pantoprazole 40 mg #PO intolerance IV fluids Zofran 4mg po #Transaminitis Liver US Hepatic panel Regular diet DVT prophylaxis- ambulating. PUD prophylaxis Protonics. Goals of care discussed with the patient > 35 min. Discussed plan of care with Dr. Castelan Code status: Full code PCP: Dr. Ly. Plan discussed with: Patient, the patient agrees with the admission plan. Plan discussed with: Patient Date of Service: May 15, 2025 Billing Provider: TWAN COYNE Common Visit Codes: 72391-[id number] INP/OBS CARE (HIGH) Secondary Visit Codes: [id number] CARE PLAN 30 MINUTES TWAN COYNE May 15, 2025 03:14
[2025-05-15] MEDS ORDERED: ACETAMINOPHEN 325 MG TAB PO PRN (03:15)
[2025-05-15 03:55] VITALS: BP 153/103
[2025-05-15] MEDS ORDERED: cefTRIAXone 1GM/50ML D5W 50 ML IV SCH (04:00)
[2025-05-15] MEDS ORDERED: HYDROcodone-ACET 10/325MG TAB PO PRN (04:00)
[2025-05-15 04:28] LABS: Hematocrit 38.4 % (36.0-46.0); Hemoglobin 12.8 g/dL (12.2-16.2); Mean Corpuscular Hemoglobin 26.4 pg (28.0-32.0); Mean Corpuscular Volume 79.1 fL (80.0-100.0); Nucleated Red Blood Cells % 0.0 %
[2025-05-15 04:37] LABS: Chloride 110 mmol/L (98-107); Potassium 3.9 mmol/L (3.5-5.1); Sodium 145 mmol/L (136-145)
[2025-05-15 04:38] LABS: Anion Gap 13 (5-15); Calcium 8.9 mg/dL (8.7-10.4); Carbon Dioxide 22 mmol/L (20-31)
[2025-05-15 04:43] LABS: BUN/Creatinine Ratio 24.3 (10.0-20.0); Blood Urea Nitrogen 18 mg/dL (9-23)
[2025-05-15 04:46] LABS: Glucose 107 mg/dL (74-106)
[2025-05-15 05:00] VITALS: PULSE 108; RESP 19; TEMP 97.7; O2SAT 99
[2025-05-15] MEDS ORDERED: PRO25I PO (05:34)
[2025-05-15] MEDS ORDERED: TIZA4CAP PO (05:34)
[2025-05-15] MEDS ORDERED: OXY5T GT (05:34)
[2025-05-15] MEDS: ONDANSETRON HCL 4 MG/2 ML VIAL IV PRN (05:40)
--- NOTE | 2025-05-15 07:16 | DVHDSRES ---
Discharge Summary Date of Admission Resident Creating Document: TWAN COYNE RESIDENT May 15, 2025 at 03:14 Date of Discharge: May 15, 2025 Admitting Diagnosis #Intractable abdominal pain #PO intolerance Wounds: No wounds on admission. Labs/Diagnostic Data: Laboratory Results Test 05/15/25 03:55 05/15/25 01:20 05/15/25 00:19 05/14/25 23:25 White Blood Count 6.7 10^3/uL (4.4-10.8) Red Blood Count 4.86 10^6/uL (4.0-5.20) Hemoglobin 12.8 g/dL (12.2-16.2) Hematocrit 38.4 % (36.0-46.0) Mean Corpuscular Volume 79.1 fL (80.0-100.0) Mean Corpuscular Hemoglobin 26.4 pg (28.0-32.0) Mean Corpuscular Hemoglobin Concent 33.4 g/dL (32.0-36.0) Red Cell Distribution Width 18.0 % (11.8-14.3) Platelet Count 334 10^3/uL (140-450) Mean Platelet Volume 9.1 fL (6.9-10.8) Neutrophils (%) (Auto) 87.2 % (37.0-80.0) Lymphocytes (%) (Auto) 10.2 % (10.0-50.0) Monocytes (%) (Auto) 2.5 % (0.0-12.0) Eosinophils (%) (Auto) 0.0 % (0.0-7.0) Basophils (%) (Auto) 0.1 % (0.0-2.0) Neutrophils # (Auto) 5.9 10 ^3/uL (1.6-8.6) Lymphocytes # (Auto) 0.7 10 ^3/uL (0.4-5.4) Monocytes # (Auto) 0.2 10 ^3/uL (0-1.3) Eosinophils # (Auto) 0 10 ^3/uL (0-0.8) Basophils # (Auto) 0 10 ^3/uL (0-0.2) Nucleated Red Blood Cells 0.0 % Sodium Level 145 mmol/L (136-145) Potassium Level 3.9 mmol/L (3.5-5.1) Chloride Level 110 mmol/L (98-107) Carbon Dioxide Level 22 mmol/L (20-31) Anion Gap 13 (5-15) Blood Urea Nitrogen 18 mg/dL (9-23) Creatinine 0.74 mg/dL (0.550-1.02) Glomerular Filtration Rate Calc 102 mL/min (>90) BUN/Creatinine Ratio 24.3 (10.0-20.0) Serum Glucose 107 mg/dL (74-106) Calcium Level 8.9 mg/dL (8.7-10.4) Lactic Acid Level 1.4 mmol/L (0.4-2.0) Troponin I High Sensitivity < 3 ng/L (</=34) Total Bilirubin 0.6 mg/dL (0.2-1.0) Aspartate Amino Transferase (AST) 186 U/L (13-40) Alanine Aminotransferase (ALT) 165 U/L (7-40) Alkaline Phosphatase 428 U/L (46-116) Total Protein 8.8 g/dL (5.7-8.2) Albumin 5.7 g/dL (3.2-4.8) Lipase 36 U/L (12-53) Other Laboratory Tests 05/15/25 03:55 Brief Hx & Hospital Course: Vani Hardin is a 44-year-old female, with relevant past medical history of status post hysterectomy. The patient came to ER via EMS with chief complain of 2 month of intermittent abdominal pain 3/10, cramp-like, increases in sitting position and leaning forward, alleviates temporally with pain killers and irradiates to the pelvic area, associated with nausea. The patient reports she underwent partial hysterectomy on 02/14/25 at [facility]; 2 weeks after the surgery she was admitted in [facility] for intractable abdominal pain, during her admission the abd/pelv CT scan showed: "Small loculated fluid collection in the low anterior midline abdominal wall subjacent to incision which could be postoperative collection though a developing abscess". The patient was then transferred to [facility] for continuation of care. Today, the patient report feeling subjective fever and chills and sudden exacerbation of abdominal pain 10/10 in the pelvic area that irradiates to the epigastric and chest, associated with nausea and vomiting > #6 of gastric content. The patient reports this abdomen pain is similar to the previous episode. The patient denies headache, diarrhea, sick contacts or other symptoms. Patient will be admitted for further assessments and management. I was notified by Martita (RN), that Vani Hardin states she wants to leave the hospital Against Medical Advice (AMA). The patient was encouraged to stay for further treatment/stabilization. Dr. Armani REES notified of patient's wishes. Patient advised of the risks and benefits of leaving AMA. Patient verbalized understanding. All IV access removed, tele box cleaned and returned. Patient encouraged to return to the ER if symptoms do not improve or worsen. Operations or Procedures Exam: CT CT AB PEL WO CON-NO ORAL OR IV History: Abdominal pain, history of intra-abdominal abscess Comparison Study: US PELVIC on DOS: 09/17/24, CT ABD PELVIS WO CONTRAST on DOS: 09/05/19 TECHNIQUE: Multidetector CT of the abdomen was performed from lung bases to pubic symphysis. Imaging was performed without IV contrast. Axial, coronal and sagittal multiplanar reformats were obtained from the axial data set by the technologist. Radiation Dose Information: Dose-length product is 493 mGy*cm FINDINGS: Evaluation of solid organs is limited due to lack of intravenous contrast use. Findings: Lung Bases: No acute or significant lung base finding. Normal heart size. No pleural or pericardial effusion. Liver: The liver is normal in size. No focal lesions. Gallbladder and Biliary Tree: surgically removed Spleen: Unremarkable Pancreas: The pancreas is grossly normal in appearance. Adrenal Glands: calcified right adrenal gland. left adrenal gland is unremarkable. Kidneys: Kidneys are grossly normal without calculi or hydronephrosis. Bladder: Grossly unremarkable for degree of distention. Bowel: The stomach is grossly normal in appearance. Small bowel and colon are normal in caliber and distribution. The appendix is not visualized; however, no secondary findings of acute appendicitis identified. Ascites: Absent Lymphadenopathy: No mesenteric, retroperitoneal or periportal lymphadenopathy. Abdominal Wall and Mesentery: Unremarkable. Vasculature: The visualized abdominal aorta is normal in size and caliber. Evaluation of abdominal and pelvic vessels is limited due to lack of intravenous contrast. Pelvic Organs: Status post hysterectomy with postoperative changes. Postoperative changes are also noted of the anterior ventral pelvis without definite CT evidence of abscess at this time. Musculoskeletal: No aggressive focal bony lesions, acute fractures or dislocation. Soft tissues: bilateral breast implants. IMPRESSION: 1. Status post hysterectomy with postoperative changes. Postoperative changes are also noted of the anterior ventral pelvis without definite CT evidence of abscess at this time. 2. No acute abdominal or pelvic finding. : XY CHEST XRAY 1 VIEW CLINICAL HISTORY: Epigastric pain TECHNIQUE: Single frontal view of the chest WID: COMPARISON: CHEST TWO VIEWS ROUTINE on DOS: 09/02/19 FINDINGS: Lines and tubes: None Chest: ABDOMINAL ULTRASOUND CLINICAL HISTORY: Epigastric pain, elevated LFTs TECHNIQUE: Multiple grayscale and color Doppler ultrasound images were obtained of the abdomen. WID: COMPARISON: N same day CT abdomen and pelvis FINDINGS: Liver and Biliary System: Homogeneous echotexture, normal size measuring 13.2 cm. No focal hepatic observations. No intrahepatic bile duct dilatation. The common duct measures 0.3 cm at the mien hepatis although it is ectatic on same day CT abdomen and pelvis. The gallbladder is surgically absent Pancreas: Visualized portions are unremarkable. Mild prominence of the pancreatic duct. Kidneys: The right kidney is 9.1 cm . No hydronephrosis, increased echogenicity, shadowing stone, or focal lesion. IMPRESSION: Prior cholecystectomy. No acute abnormality. The heart size and pulmonary vasculature is within normal limits. No pleural effusion, pneumothorax, or consolidation. The osseous structures are grossly intact. Cholecystectomy clips IMPRESSION: No acute cardiopulmonary abnormality. Condition at Discharge: Undetermined Final Diagnosis/Problems List Undeterminated, Vani Hardin went Against Medical Advice (AMA). Secondary Diagnosis: Undeterminated, Vani Hardin went Against Medical Advice (AMA). Discharge Disposition: AMA SNF Discharge Will this Physician continue t: No Reason For Transfer: Undeterminated, Vani Hardin went Against Medical Advice (AMA). Discharge Instruct/Medications Diet: See Comment (Vani Hardin went Against ) Diet comment: Vani Hardin went Against Medical Advice (AMA). Activity comment: Vani Hardin went Against Medical Advice (AMA). Follow Up/Referral: Vani Hardin went Against Medical Advice (AMA). Medications: Vani Hardin went Against Medical Advice (AMA). Care Plan: Vani Hardin went Against Medical Advice (AMA). Scheduled Oxycodone Hcl (Oxycodone Hcl), 5 MG GT BID, (Reported) Tizanidine Hydrochloride (Zanaflex), 1 CAP PO QPM, (Reported) Miscellaneous Medications Promethazine Hcl (Phenergan Injection), 25 MG PO, (Reported) Discharge Statement: Vani Hardin went Against Medical Advice (AMA). The patient was advised to return to the ER or call 911 if any headaches, dizziness, shortness of breath, chest pain, abdominal pain, bleeding, fevers, or worsening of medical condition. Discharge Care Plan Problem Vani Hardin went Against Medical Advice (AMA). ASSESSMENT ASSESSMENT Assessment Vani Hardin went Against Medical Advice (AMA). TWAN COYNE RESIDENT May 15, 2025 07:16
[2025-05-15] MEDS ORDERED: PANTOPRAZOLE 40 MG/10 ML VIAL INJ IV SCH (10:00)
--- NOTE | 2025-05-15 11:51 | ECG ---
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
[2025-05-15 12:13] LABS: Hepatitis B Surface Antigen Negative (Negative); Hepatitis C Antibody Negative (Negative)
[2025-05-15 12:14] LABS: Hepatitis C Antibody Negative (Negative)
== END 2025-05-15 06:00 | disposition left against medical advice (07) | DRG 463 ==
LOC: EDBD 22:21 → ER 22:21 → EDSEX 22:21 → OVERFLOW 05-15 03:14 → EAST 05-15 04:25
PROVIDERS: ATTEND Emergency Medicine
DX: N30.00 Acute cystitis without hematuria (principal); I10 Essential (primary) hypertension; K21.9 Gastro-esophageal reflux disease without esophagitis; R79.89 Other specified abnormal findings of blood chemistry; N73.9 Female pelvic inflammatory disease, unspecified; R74.01 Elevation of levels of liver transaminase levels; Z53.29 Procedure and treatment not carried out because of patient's decision for other reasons; Z90.710 Acquired absence of both cervix and uterus; Z88.5 Allergy status to narcotic agent; Z91.041 Radiographic dye allergy status; Z91.013 Allergy to seafood; Z90.49 Acquired absence of other specified parts of digestive tract; Z83.3 Family history of diabetes mellitus; Z82.49 Family history of ischemic heart disease and other diseases of the circulatory system; Z98.51 Tubal ligation status; Z79.899 Other long term (current) drug therapy
CPT/HCPCS: 36415; 71045; 74176; 76705; 80048; 80053; 80074; 83605; 83690; 84484; 85025; 86803; 87040; 87340; 93005; 96361; 96374; 96375; G0378; J0131; J2405; J3490